=== PATIENT | female | born 1960 | race Caucasian/White ===

== ENCOUNTER → 2017-07-18 | Outpatient (CLI) | payer BC ==
[~2017-07-18] MED LIST: AMB10 PO; ATV5 PO; FLUO40CA8 PO; HYDR-3983 PO; METO50TA16 PO; NAPR-1169 PO; SIMV20TA2 PO
[2017-07-18 10:54] LABS: ALBUMIN 3.3 gm/dl (3.4-5.0); ALT/SGPT 55 U/L (12-78); AST/SGOT 33 U/L (15-37); BLOOD UREA NITROGEN 15 mg/dl (7-18); CALCIUM 9.1 mg/dl (8.5-10.1); CARBON DIOXIDE 26 mmol/L (21-32); CREATININE 0.77 mg/dl (0.60-1.20); GLUCOSE 114 mg/dl (70-99); POTASSIUM 4.2 mmol/L (3.5-5.1); SODIUM 135 mmol/L (136-145)
[2017-07-18 10:57] LABS: ALKALINE PHOSPHATASE 187 U/L (45-117); CHOLESTEROL 210 mg/dl (0-200); LDL CHOLESTEROL CALCULATED 124 mg/dl; TOTAL PROTEIN 7.8 gm/dl (6.4-8.2)
== END | disposition home or self-care (01) ==
LOC: C.LAB 09:29
PROVIDERS: ATTEND Nurse Practitioner Adult Health
DX: Z11.59 Encounter for screening for other viral diseases (principal); R53.83 Other fatigue; E78.5 Hyperlipidemia, unspecified; I10 Essential (primary) hypertension

== ENCOUNTER → 2017-08-07 | Outpatient (CLI) | payer BC | END | disposition home or self-care (01) | LOC: C.LAB 08:27 | PROVIDERS: ATTEND Nurse Practitioner Adult Health | DX: R73.01 Impaired fasting glucose (principal) ==

== ENCOUNTER 2018-07-12 19:04 | Observation (INO) ==
[2018-07-12] MEDS ORDERED: FAMOTIDINE 20 MG TAB PO ONE (20:04)
[2018-07-12] MEDS ORDERED: GI COCKTAIL ED USE PO ONE (20:04)
[2018-07-12] MEDS ORDERED: SUCRALFATE 1 GM TAB PO STA (20:04)
[2018-07-12 20:42] LABS: Basophils # (auto) 0.05 K/uL (0-0.2); Basophils % (auto) 0.5 %; Eosinophils # (auto) 0.18 K/uL (0-0.5); Eosinophils % (auto) 1.7 %; Hematocrit (blood only) 42.5 % (37-47); Immature Granulocytes # (auto) 0.03 K/uL (0.00-0.02); Immature Granulocytes % (auto) 0.3 %; Lymphocytes # (auto) 2.61 K/uL (1.2-3.4); Lymphocytes % (auto) 24.8 %; Mean Corpuscular Hgb Conc 35.3 g/dL (32-36); Mean Corpuscular Volume 91.2 fL (80-100); Mean Platelet Volume 9.2 fL (7.4-10.4); Monocytes # (auto) 0.87 K/uL (0.11-0.59); Monocytes % (auto) 8.3 %; Neutrophils # (auto) 6.79 K/uL (1.4-6.5); Neutrophils % (auto) 64.4 %; Platelet Count 260 K/uL (130-400); RDW Coefficient of Variation 13.3 % (11.5-14.5); RDW Standard Deviation 44.2 fL (36.4-46.3); Red Blood Count 4.66 M/uL (4.2-5.4); White Blood Count 10.53 K/uL (4.8-10.8)
[2018-07-12 20:58] LABS: iSTAT Creatinine 0.9 mg/dl (0.6-1.3); iSTAT Ionized Calcium 1.13 mmol/l (1.12-1.32); iSTAT Potassium 3.9 mEq/L (3.3-5.0)
[2018-07-12 20:58] LABS: Alanine Aminotransferase 48 U/L (12-78); Albumin Level 3.2 gm/dl (3.4-5.0); Aspartate Aminotransferase 30 U/L (15-37); BUN Creatinine Ratio 16.1 (10-20); Blood Urea Nitrogen 16 mg/dl (7-18); Calcium 8.9 mg/dl (8.5-10.1); Carbon Dioxide 27 mmol/L (21-32); Chloride 103 mmol/L (98-107); Creatinine Clr Calc Pharmacy 75.6 ml/min; Est GFR (African American) 72.8; Est GFR (Non-African American) 62.8; Glucose 101 mg/dl (70-99); Potassium 3.8 mmol/L (3.5-5.1); Sodium 136 mmol/L (136-145)
[2018-07-12 21:03] LABS: Albumin Globulin Ratio 0.7 (0.9-2); Alkaline Phosphatase 240 U/L (45-117); Bilirubin,Total 0.4 mg/dl (0.2-1); Creatine Kinase 38 U/L (26-192); Creatine Kinase MB < 1.0 ng/ml (0.5-3.6); Globulin 4.4 gm/dl (2.5-4.0); Total Protein 7.6 gm/dl (6.4-8.2); Troponin I < 0.015 ng/ml (0-0.045)
--- NOTE | 2018-07-12 21:51 | XRay Report ---
XR chest 1V not portable HISTORY: Atypical Chest Pain COMPARISON: None. FINDINGS: The lungs are clear. The cardiac silhouette is mildly enlarged. No pleural effusions. No pn eumothorax. No evidence for pulmonary edema. Right peritracheal prominence is likely due to to medias tinal fat. IMPRESSION: Mild cardiomegaly. Electronically signed by: Remy Cabrales M.D. 07/12/2018 9:50 PM
--- NOTE | 2018-07-12 21:52 | XRay Report ---
THORACIC SPINE 3 VIEWS HISTORY: Pt c/o back pain COMPARISON: None. FINDINGS: There is no fracture. No subluxation. Prior cholecystectomy. Small endplate osteophytes an d mild disc space narrowing throughout the majority of the thoracic spine. This remains unchanged. IMPRESSION: No fracture or subluxation within the thoracic spine. Mild degenerative changes are again noted. Electronically signed by: Remy Cabrales M.D. 07/12/2018 9:51 PM
[2018-07-12] MEDS ORDERED: ALBUTEROL 0.083% NEBU SOLN 3 ML VIAL NEB STA (22:31)
[2018-07-12] MEDS ORDERED: ASPIRIN CHEW 324 MG PO STA (23:06)
[2018-07-12] MEDS ORDERED: NITROGLYCERIN SL 0.4 MG/TAB TAB SL STA (23:06)
[2018-07-12] MEDS ORDERED: MoRPHine SULFATE 10 MG/ML CARP/VIAL IV STA (23:34)
[2018-07-12] MEDS ORDERED: ONDANSETRON INJ 2 MG/ML 2 ML VIAL IV STA (23:34)
[2018-07-13] MEDS ORDERED: OPTIRAY 320 125ml IV PRN (00:10)
--- NOTE | 2018-07-13 01:02 | History & Physical Report ---
Date of Service July 13, 2018 Assessment & Plan (1) Chest pain: Seems to be more musculoskeletal in nature rather than cardiac. However, patient with risk factors to include age, HTN, HLP, active smoker, was borderline DM in the past as well. -Telemetry monitoring -Trend troponin -Check lipids -Check A1C -Check 2D echocardiogram (2) Back pain: Appears to be musculoskeletal in nature. Tenderness with palpation. Muscles are warm and boggy. Neurologically intact. Neck is supple. No recent trauma. X-ray T-spine with chronic degenerative changes -Tylenol -Heating pad -Lidoderm patch -Will avoid NSAIDs for now while ruling out ACS (3) Hypertension: Blood pressure well controlled at present. Equal in both arms (125/88 in LUE, 121/79 in RUE) -Continue Metoprolol (4) Hyperlipidemia: Patient states she is to be taking a statin but has not had the prescription filled as of yet -Check lipids -Will initiate statin prior to DC EtOH use - patient states that she used to drink approximately a six pack/day. She recently cut back over the last two weeks and now drinks a 6 pack daily on weekends only. No history of seizures, withdrawal. Last drink was Monday -CIWA protocol PRN Post nasal drip - Start nasal saline and flonase for symptomatic relief F/E/N- Heplock, monitor electrolytes and replete as needed, heart healthy diet as tolerated Ppx - Lovenox for DVT prophylaxis. Start Pepcid daily for increase in reflux symptoms Code - DNR per discussion with patient Dispo - Observation to medical floor History of Present Illness Chief Complaint: Back pain, chest heaviness Primary Care Provider: MERRILL Myers Patient is a 58yo female with history of HTN, HLP, Borderline DM, active smoker presenting with tightness in her chest and thoracic back pain that started last night. Her back pain is 8/10 in severity, midline in upper portion of back with radiation to shoulders. She denies trauma. No new activities or strain. No relieving or exacerbating factors identified. Patient also reports substernal chest tightness. Non-radiating. Non- exertional. No palpitations, SOB, diaphoresis. She has been feeling unwell for the last two weeks - weakness, fatigue, malaise , nausea as well as occasional dizziness. Also reporting constant post-nasal drip and a recent increase in her reflux symptoms. ER Course: Zofran 4mg IV, Morphine 8mg, ASA 324mg, Nitro 0.4mg, Albuterol neb, GI cocktail, Sucralfate, Pepcid Allergies Allergy/AdvReac Type Severity Reaction Status Date / Time No Known Allergies Allergy Verified 07/12/18 22:08 Home Medications Home Medications Medication Instructions Recorded Confirmed Type fluoxetine 40 mg PO DAILY 07/12/18 07/12/18 History lorazepam 0.5 mg PO BID PRN 07/12/18 07/12/18 History metoprolol tartrate 50 mg PO DAILY 07/12/18 07/12/18 History Past Med/Surg History Medical History Heart burn Hx of hysterectomy Hyperlipidemia Hypertension Surgical History Hx of cholecystectomy Family History Other Cancer Diabetes Hypertension Lung disease Social History Feels Safe at Home: Yes Smoking Status: Current every day smoker Hx Alcohol Use: Yes (beer - 6pack/day on weekends) Hx Substance Use: No Review of Systems All systems reviewed & are unremarkable except as noted in HPI & below Weakness, fatigue, malaise Thoracic back pain SSCP Dizziness PND GERD Physical Exam 2 Vital Signs (Past 24 Hours): Last Vital Signs Temp 36.9 C 07/12/18 19:19 Pulse 98 H 07/13/18 00:10 Resp 18 07/13/18 00:10 BP 121/78 07/13/18 00:10 Pulse Ox 98 07/13/18 00:10 Physical Exam: General: patient resting comfortably, NAD, non-toxic in appearance, AA&O x 4, mildly tremulous Skin: warm, dry, intact, no rashes or lesions HEENT: NC/AT, right pupil minimally reactive to light, blindness right eye, left pupil briskly reactive, EOMI, anicteric sclera, conjunctiva without injection, external ear normal to inspection and nontender, nares patent, moist mucus membranes, dentition intact, no oropharyngeal lesions, mild erythemal of posterior pharynx, neck supple, trachea midline, no LAD, no thyromegaly, no JVD Heart: +S1/S2, regular, no m/r/g, +CW pain Lungs: equal air entry bilaterally, no rales/rhonchi/wheezes Abd: +BS, soft, NT/ND, no masses/organomegaly/ascites Ext: warm, 2+ pulses in UE/LE bilaterally, no clubbing/cyanosis or edema, + thoracic back pain, muscle tenderness, warmth/bogginess Neuro: nonfocal, patient AA&O x 4, speech intact, no facial droop, moving all extremities on command with equal strength 5/5 Results & Data Laboratory Results Lab Results 07/12/18 07/12/18 07/12/18 Range/Units 20:23 20:30 20:30 WBC 10.53 (4.8-10.8) K/uL RBC 4.66 (4.2-5.4) M/uL Hgb 15.0 (12.0-16.0) g/dL POC Hgb (12.0-16.0) g/dl Hct 42.5 (37-47) % POC Hct (37-47) % MCV 91.2 (80-100) fL MCH 32.2 (25-34) pg MCHC 35.3 (32-36) g/dL RDW Std Deviation 44.2 (36.4-46.3) fL RDW Coeff of [place] 13.3 (11.5-14.5) % Plt Count 260 (130-400) K/uL MPV 9.2 (7.4-10.4) fL Immature Gran % (Auto) 0.3 % Neut % (Auto) 64.4 % Lymph % (Auto) 24.8 % [place] % (Auto) 8.3 % Eos % (Auto) 1.7 % Baso % (Auto) 0.5 % Immature Gran # (Auto) 0.03 H (0.00-0.02) K/uL Neut # (Auto) 6.79 H (1.4-6.5) K/uL Lymph # (Auto) 2.61 (1.2-3.4) K/uL [place] # (Auto) 0.87 H (0.11-0.59) K/uL Eos # (Auto) 0.18 (0-0.5) K/uL Baso # (Auto) 0.05 (0-0.2) K/uL POC D-Dimer (0-450) ng/mlFEU POC Sodium (135-144) mEq/L Sodium 136 (136-145) mmol/L POC Potassium (3.3-5.0) mEq/L Potassium 3.8 (3.5-5.1) mmol/L POC Chloride (101-112) mEq/L Chloride 103 (98-107) mmol/L Carbon Dioxide 27 (21-32) mmol/L POC Total CO2 (24-31) mEq/l Anion Gap 6.0 (3-11) POC Anion Gap (16-25) mmol/L POC BUN (7-18) mg/dl BUN 16 (7-18) mg/dl Creatinine 0.99 (0.6-1.2) mg/dl POC Creatinine (0.6-1.3) mg/dl Est Cr Clr Drug Dosing 75.6 ml/min Est GFR ( Amer) 72.8 Est GFR (Non-Af Amer) 62.8 BUN/Creatinine Ratio 16.1 (10-20) Glucose 101 H (70-99) mg/dl POC Glucose (70-99) POC Glucose (other) (70-99) mg/dl Calcium 8.9 (8.5-10.1) mg/dl POC Ioniz Calcium [place] (1.12-1.32) mmol/l Total Bilirubin 0.4 (0.2-1) mg/dl AST 30 (15-37) U/L ALT 48 (12-78) U/L Alkaline Phosphatase 240 H (45-117) U/L Total Creatine Kinase 38 (26-192) U/L CK-MB (CK-2) < 1.0 (0.5-3.6) ng/ml CK/CKMB % Calc TNP Troponin I < 0.015 (0-0.045) ng/ml Total Protein 7.6 (6.4-8.2) gm/dl Albumin 3.2 L (3.4-5.0) gm/dl Globulin 4.4 H (2.5-4.0) gm/dl Albumin/Globulin Ratio 0.7 L (0.9-2) Lipase 137 (73-393) U/L Monoscreen (Negative) Influenza Type A Ag Neg for Influ A (Neg) Influenza Type B Ag Neg for Influ B (Neg) 07/12/18 07/12/18 07/12/18 Range/Units 20:30 20:39 20:44 WBC (4.8-10.8) K/uL RBC (4.2-5.4) M/uL Hgb (12.0-16.0) g/dL POC Hgb 15.0 (12.0-16.0) g/dl Hct (37-47) % POC Hct 44 (37-47) % MCV (80-100) fL MCH (25-34) pg MCHC (32-36) g/dL RDW Std Deviation (36.4-46.3) fL RDW Coeff of [place] (11.5-14.5) % Plt Count (130-400) K/uL MPV (7.4-10.4) fL Immature Gran % (Auto) % Neut % (Auto) % Lymph % (Auto) % [place] % (Auto) % Eos % (Auto) % Baso % (Auto) % Immature Gran # (Auto) (0.00-0.02) K/uL Neut # (Auto) (1.4-6.5) K/uL Lymph # (Auto) (1.2-3.4) K/uL [place] # (Auto) (0.11-0.59) K/uL Eos # (Auto) (0-0.5) K/uL Baso # (Auto) (0-0.2) K/uL POC D-Dimer 434 (0-450) ng/mlFEU POC Sodium 138 (135-144) mEq/L Sodium (136-145) mmol/L POC Potassium 3.9 (3.3-5.0) mEq/L Potassium (3.5-5.1) mmol/L POC Chloride 101 (101-112) mEq/L Chloride (98-107) mmol/L Carbon Dioxide (21-32) mmol/L POC Total CO2 25 (24-31) mEq/l Anion Gap (3-11) POC Anion Gap 17.0 (16-25) mmol/L POC BUN 15 (7-18) mg/dl BUN (7-18) mg/dl Creatinine (0.6-1.2) mg/dl POC Creatinine 0.9 (0.6-1.3) mg/dl Est Cr Clr Drug Dosing ml/min Est GFR ( Amer) Est GFR (Non-Af Amer) BUN/Creatinine Ratio (10-20) Glucose (70-99) mg/dl POC Glucose (70-99) POC Glucose (other) 101 H (70-99) mg/dl Calcium (8.5-10.1) mg/dl POC Ioniz Calcium [place] 1.13 (1.12-1.32) mmol/l Total Bilirubin (0.2-1) mg/dl AST (15-37) U/L ALT (12-78) U/L Alkaline Phosphatase (45-117) U/L Total Creatine Kinase (26-192) U/L CK-MB (CK-2) (0.5-3.6) ng/ml CK/CKMB % Calc Troponin I (0-0.045) ng/ml Total Protein (6.4-8.2) gm/dl Albumin (3.4-5.0) gm/dl Globulin (2.5-4.0) gm/dl Albumin/Globulin Ratio (0.9-2) Lipase (73-393) U/L Monoscreen Negative (Negative) Influenza Type A Ag (Neg) Influenza Type B Ag (Neg) 07/13/18 Range/Units 00:19 WBC (4.8-10.8) K/uL RBC (4.2-5.4) M/uL Hgb (12.0-16.0) g/dL POC Hgb (12.0-16.0) g/dl Hct (37-47) % POC Hct (37-47) % MCV (80-100) fL MCH (25-34) pg MCHC (32-36) g/dL RDW Std Deviation (36.4-46.3) fL RDW Coeff of [place] (11.5-14.5) % Plt Count (130-400) K/uL MPV (7.4-10.4) fL Immature Gran % (Auto) % Neut % (Auto) % Lymph % (Auto) % [place] % (Auto) % Eos % (Auto) % Baso % (Auto) % Immature Gran # (Auto) (0.00-0.02) K/uL Neut # (Auto) (1.4-6.5) K/uL Lymph # (Auto) (1.2-3.4) K/uL [place] # (Auto) (0.11-0.59) K/uL Eos # (Auto) (0-0.5) K/uL Baso # (Auto) (0-0.2) K/uL POC D-Dimer (0-450) ng/mlFEU POC Sodium (135-144) mEq/L Sodium (136-145) mmol/L POC Potassium (3.3-5.0) mEq/L Potassium (3.5-5.1) mmol/L POC Chloride (101-112) mEq/L Chloride (98-107) mmol/L Carbon Dioxide (21-32) mmol/L POC Total CO2 (24-31) mEq/l Anion Gap (3-11) POC Anion Gap (16-25) mmol/L POC BUN (7-18) mg/dl BUN (7-18) mg/dl Creatinine (0.6-1.2) mg/dl POC Creatinine (0.6-1.3) mg/dl Est Cr Clr Drug Dosing ml/min Est GFR ( Amer) Est GFR (Non-Af Amer) BUN/Creatinine Ratio (10-20) Glucose (70-99) mg/dl POC Glucose 119 H (70-99) POC Glucose (other) (70-99) mg/dl Calcium (8.5-10.1) mg/dl POC Ioniz Calcium [place] (1.12-1.32) mmol/l Total Bilirubin (0.2-1) mg/dl AST (15-37) U/L ALT (12-78) U/L Alkaline Phosphatase (45-117) U/L Total Creatine Kinase (26-192) U/L CK-MB (CK-2) (0.5-3.6) ng/ml CK/CKMB % Calc Troponin I (0-0.045) ng/ml Total Protein (6.4-8.2) gm/dl Albumin (3.4-5.0) gm/dl Globulin (2.5-4.0) gm/dl Albumin/Globulin Ratio (0.9-2) Lipase (73-393) U/L Monoscreen (Negative) Influenza Type A Ag (Neg) Influenza Type B Ag (Neg) Diagnostic Findings THORACIC SPINE 3 VIEWS HISTORY: Pt c/o back pain COMPARISON: None. FINDINGS: There is no fracture. No subluxation. Prior cholecystectomy. Small endplate osteophytes and mild disc space narrowing throughout the majority of the thoracic spine. This remains unchanged. IMPRESSION: No fracture or subluxation within the thoracic spine. Mild degenerative changes are again noted. Electronically signed by: Remy Cabrales M.D. 07/12/2018 9:51 PM Dictated: [id number] Transcribed: 07/12/182149 XR chest 1V not portable HISTORY: Atypical Chest Pain COMPARISON: None. FINDINGS: The lungs are clear. The cardiac silhouette is mildly enlarged. No pleural effusions. No pneumothorax. No evidence for pulmonary edema. Right peritracheal prominence is likely due to to mediastinal fat. IMPRESSION: Mild cardiomegaly. Electronically signed by: Remy Cabrales M.D. 07/12/2018 9:50 PM Dictated: [id number] Transcribed: 07/12/182147 ECG Additional Comments: NSR at 87bpm, left axis, XH=815. QRS=86, LOz=193, no evidence of acute ischemia Code Status & VTE Plan Code Status DNR per discussion with patient VTE Prophylaxis Plan VTE Prophylaxis will be ordered: Yes Critical Care Time Critical Care Time: No _ (1) Chest pain Chest pain type: precordial pain Ischemic chest pain type: Qualified Code(s ): R07.2 - Precordial pain (2) Back pain Back pain location: thoracic back pain Chronicity: acute Back pain laterality: bilateral Qualified Code(s): M54.6 - Pain in thoracic spine (3) Hypertension Hypertension type: essential hypertension Qualified Code(s): I10 - Essential (primary) hypertension (4) Hyperlipidemia Hyperlipidemia type: unspecified Qualified Code(s): E78.5 - Hyperlipidemia, unspecified
[2018-07-13] MEDS ORDERED: ACETAMINOPHEN 325 MG TAB PO PRN (01:25)
[2018-07-13] MEDS ORDERED: ONDANSETRON INJ 2 MG/ML 2 ML VIAL IV PRN (01:25)
[2018-07-13] MEDS ORDERED: SODIUM CHLORIDE 0.65% NA SOLN 45 ML (OCEAN) PRN (01:25)
[2018-07-13] MEDS ORDERED: LORazepam 1 MG/2 ML VIAL IV PRN (01:25)
[2018-07-13] MEDS ORDERED: LORazepam 0.5 MG TAB PO PRN (01:25)
[2018-07-13 01:44] LABS: Magnesium 2.1 mg/dl (1.8-2.4); NT Pro B Type Natriuretic Pept 124 pg/ml (0-900); Phosphorus 4.3 mg/dl (2.5-4.9)
--- NOTE | 2018-07-13 02:20 | Emergency Department Note ---
Entered by Jeffry Kaplan acting as a scribe for Jose Sosa MD History of Present Illness General Chief complaint: Back Injury/Pain Stated complaint: UPPER BACK PAIN, DIZZINESS, FATIGUE Time Seen by Provider: 07/12/18 19:56 Source: patient History of Present Illness Provider complaint: Back pain Onset (ago): day(s) 1 Location: back Radiation: non-radiation Pain Consistency: + intermittent Maximum Pain Intensity: 5 Quality: + burning Relieved By: + none Exacerbated By: + other (Deep breaths) Associated symptoms: + chest pain, + nausea/vomiting (No vomiting) and + other ( Fatigued) The patient is a 58 year old female who presents to the Emergency Room with complaints of intermittent back pain that started last night. Taking deep breaths makes the back pain worse and nothing seems to make it better. She states she has also been more fatigued than usual and nauseated. She first started not feeling well about 2 weeks ago with flu like symptoms. She denies any recent heavy lifting or any abnormal activities. She also has a little heart burn she describes as a burning pain and has a history of hypertension and blood clots in her eye. She is a smoker and does have a family history of hypertension, diabetes, and lung disease. Home Medications Home Medications Medication Instructions Recorded Confirmed Type fluoxetine 40 mg PO DAILY 07/12/18 07/12/18 History lorazepam 0.5 mg PO BID PRN 07/12/18 07/12/18 History metoprolol tartrate 50 mg PO DAILY 07/12/18 07/12/18 History Allergies Allergy/AdvReac Type Severity Reaction Status Date / Time No Known Allergies Allergy Verified 07/12/18 22:08 Past Med/Surg History Medical History Heart burn Hx of hysterectomy Hyperlipidemia Hypertension Surgical History Hx of cholecystectomy Family History Other Cancer Diabetes Hypertension Lung disease Social History Current Living Situation: Spouse Other Information That Helps Us Care for You: No Feels Safe at Home: Yes Safety Concerns: Feels Safe At This Time Smoking Status: Current every day smoker Tobacco Type: cigarettes Do You Dip or Chew Tobacco: No Tobacco Cessation Education Requested by Patient: No Hx Alcohol Use: Yes Alcohol type: beer Alcohol Intake Frequency: 3 or more drinks per day Hx Substance Use: No Beliefs That Will Affect Care: None Preferred Language: Vietnamese Communication Ability: Effective Air Traffic Coordinator Required: No Review of Systems See HPI for pertinent positives & negatives. and A total of 10 systems reviewed and were otherwise negative Physical Exam Vital Signs Vital Signs - 24 hr 07/12/18 19:19 07/12/18 21:10 07/12/18 22:13 Temperature 36.9 C Temperature Source Oral Sepsis Recent Fever Within 48 Hours No Sepsis New/Unexplained Change in Mental Status No Sepsis Action Taken by Nursing No Action Required Pulse Rate 96 H 81 Pulse Rate [Right Finger] 81 Pulse Rhythm Regular Regular Pulse Rhythm [Right Finger] Regular Pulse Strength Normal Pulse Strength [Right Finger] Normal Respiratory Rate 19 16 16 Respiratory Effort / Characteristics Non-Labored Spontaneous Non-Labored Respiratory Depth Normal Normal Respiratory Pattern Regular Regular Blood Pressure 175/96 H Blood Pressure [Right Arm] 127/67 Blood Pressure Mean 122 Blood Pressure Mean [Right Arm] 87 Blood Pressure Position Sitting Blood Pressure Position [Right Arm] Lying Pulse Oximetry 96 95 95 Oxygen Delivery Method Room Air Room Air Room Air 07/12/18 23:00 07/12/18 23:32 07/13/18 00:10 Temperature Temperature Source Sepsis Recent Fever Within 48 Hours Sepsis New/Unexplained Change in Mental Status Sepsis Action Taken by Nursing Pulse Rate Pulse Rate [Right Finger] 93 H 106 H 98 H Pulse Rhythm Pulse Rhythm [Right Finger] Regular Regular Regular Pulse Strength Pulse Strength [Right Finger] Normal Normal Normal Respiratory Rate 16 18 18 Respiratory Effort / Characteristics Non-Labored Non-Labored Non-Labored Respiratory Depth Normal Normal Normal Respiratory Pattern Regular Regular Blood Pressure Blood Pressure [Right Arm] 172/103 H 150/132 H 121/78 Blood Pressure Mean Blood Pressure Mean [Right Arm] 126 138 92 Blood Pressure Position Blood Pressure Position [Right Arm] Lying Lying Pulse Oximetry 94 94 98 Oxygen Delivery Method Room Air Room Air Room Air 07/13/18 00:50 07/13/18 01:32 Temperature 36.9 C Temperature Source Oral Sepsis Recent Fever Within 48 Hours Sepsis New/Unexplained Change in Mental Status Sepsis Action Taken by Nursing Pulse Rate 89 Pulse Rate [Right Finger] 94 H Pulse Rhythm Pulse Rhythm [Right Finger] Regular Pulse Strength Pulse Strength [Right Finger] Normal Respiratory Rate 16 18 Respiratory Effort / Characteristics Non-Labored Spontaneous Respiratory Depth Normal Respiratory Pattern Regular Blood Pressure 122/78 Blood Pressure [Right Arm] 126/78 Blood Pressure Mean Blood Pressure Mean [Right Arm] 94 Blood Pressure Position Blood Pressure Position [Right Arm] Lying Pulse Oximetry 98 93 Oxygen Delivery Method Room Air Room Air GENERAL: Awake, alert, well-appearing, in no distress HENT: Normocephalic, atraumatic. Oropharynx unremarkable. EYES: Normal conjunctiva. Sclera non-icteric. NECK: Supple. No nuchal rigidity. FROM. No masses. RESPIRATORY: Clear to auscultation. No wheezes. No rales. Normal respiratory effort. CARDIAC: Normal rate. Normal rhythm. No murmurs. No rubs. Extremities warm and well perfused. Pulses equal. No JVD. GI: Soft, non-distended. No tenderness to palpation. No rebound or guarding. No masses. RECTAL: Deferred. MUSCULOSKELETAL: Atraumatic. Chest examination reveals no tenderness. The back is symmetrical on inspection without obvious abnormality. She is tedner to the right T3 area. There is no CVA tenderness to palpation. No joint edema. LOWER EXTREMITIES: Calves are equal size bilaterally and non-tender. No edema. No discoloration. NEURO: Normal sensorium. No sensory or motor deficits noted. Course 1958: Past medical records reviewed. The patient was evaluated in room B10, and a complete history and physical examination were performed. 2310: I reevaluated the patient and she is still experiencing pain so I am ordering her Nitro and Aspirin. 2345: I spoke to Dr. Raymon Ledezma [facility] Hospitalist about the patient's case and she is going to accept the patient for further evaluation. Consultations Consultation #1: I spoke to Dr. Raymon Ledezma [facility] Hospitalist about the patient's case and she is going to accept the patient for further evaluation. Time: 23:45 Administered Medications Discontinued Medications Al Hydrox/Mg Hydrox/Simethicone () 1 dose PO ONE ONE Stop: 07/12/18 20:05 Last Admin: 07/12/18 20:26 Dose: 1 dose Albuterol (Ventolin 0.083% 2.5mg/3ml) 2.5 mg NEB NOW STA Stop: 07/12/18 22:32 Last Admin: 07/12/18 22:36 Dose: 2.5 mg Aspirin (Aspirin) 324 mg PO NOW STA Stop: 07/12/18 23:07 Last Admin: 07/12/18 23:37 Dose: 324 mg Famotidine (Pepcid) 20 mg PO NOW ONE Stop: 07/12/18 20:05 Last Admin: 07/12/18 20:25 Dose: 20 mg Morphine Sulfate (Morphine Sulfate) 8 mg IV NOW STA Stop: 07/12/18 23:35 Last Admin: 07/13/18 00:04 Dose: 8 mg Nitroglycerin (Nitrostat) 0.4 mg SL NOW STA Stop: 07/12/18 23:07 Last Admin: 07/12/18 23:37 Dose: 0.4 mg Ondansetron HCl (Zofran) 4 mg IV NOW STA Stop: 07/12/18 23:35 Last Admin: 07/13/18 00:04 Dose: 4 mg Sucralfate (Carafate Tab) 1 gm PO NOW STA Stop: 07/12/18 20:05 Last Admin: 07/12/18 20:25 Dose: 1 gm Medical Decision Making Differential Diagnosis Differential diagnoses includes but is not limited to lumbar radiculopathy, muscle strain, facture, cauda equina, mass, and disc herniation. Medical Records Attestation: I reviewed the patient's medical records. Home Medications Current Medication List: was personally reviewed by me Laboratory Data Attestation: I reviewed the patient's lab results. Result diagrams: 07/12/18 20:30 07/12/18 20:30 Lab Results 07/12/18 07/12/18 07/12/18 Range/Units 20:23 20:30 20:30 WBC 10.53 (4.8-10.8) K/uL RBC 4.66 (4.2-5.4) M/uL Hgb 15.0 (12.0-16.0) g/dL POC Hgb (12.0-16.0) g/dl Hct 42.5 (37-47) % POC Hct (37-47) % MCV 91.2 (80-100) fL MCH 32.2 (25-34) pg MCHC 35.3 (32-36) g/dL RDW Std Deviation 44.2 (36.4-46.3) fL RDW Coeff of Everett 13.3 (11.5-14.5) % Plt Count 260 (130-400) K/uL MPV 9.2 (7.4-10.4) fL Immature Gran % (Auto) 0.3 % Neut % (Auto) 64.4 % Lymph % (Auto) 24.8 % Starr % (Auto) 8.3 % Eos % (Auto) 1.7 % Baso % (Auto) 0.5 % Immature Gran # (Auto) 0.03 H (0.00-0.02) K/uL Neut # (Auto) 6.79 H (1.4-6.5) K/uL Lymph # (Auto) 2.61 (1.2-3.4) K/uL Starr # (Auto) 0.87 H (0.11-0.59) K/uL Eos # (Auto) 0.18 (0-0.5) K/uL Baso # (Auto) 0.05 (0-0.2) K/uL PT (9.0-12.0) Seconds INR (0.9-1.1) POC D-Dimer (0-450) ng/mlFEU POC Sodium (135-144) mEq/L Sodium 136 (136-145) mmol/L POC Potassium (3.3-5.0) mEq/L Potassium 3.8 (3.5-5.1) mmol/L POC Chloride (101-112) mEq/L Chloride 103 (98-107) mmol/L Carbon Dioxide 27 (21-32) mmol/L POC Total CO2 (24-31) mEq/l Anion Gap 6.0 (3-11) POC Anion Gap (16-25) mmol/L POC BUN (7-18) mg/dl BUN 16 (7-18) mg/dl Creatinine 0.99 (0.6-1.2) mg/dl POC Creatinine (0.6-1.3) mg/dl Est Cr Clr Drug Dosing 75.6 ml/min Est GFR ( Amer) 72.8 Est GFR (Non-Af Amer) 62.8 BUN/Creatinine Ratio 16.1 (10-20) Glucose 101 H (70-99) mg/dl POC Glucose (70-99) POC Glucose (other) (70-99) mg/dl Calcium 8.9 (8.5-10.1) mg/dl POC Ioniz Calcium Narcisa (1.12-1.32) mmol/l Phosphorus 4.3 (2.5-4.9) mg/dl Magnesium 2.1 (1.8-2.4) mg/dl Total Bilirubin 0.4 (0.2-1) mg/dl AST 30 (15-37) U/L ALT 48 (12-78) U/L Alkaline Phosphatase 240 H (45-117) U/L Total Creatine Kinase 38 (26-192) U/L CK-MB (CK-2) < 1.0 (0.5-3.6) ng/ml CK/CKMB % Calc TNP Troponin I < 0.015 (0-0.045) ng/ml NT-Pro-B Natriuret Pep 124 (0-900) pg/ml Total Protein 7.6 (6.4-8.2) gm/dl Albumin 3.2 L (3.4-5.0) gm/dl Globulin 4.4 H (2.5-4.0) gm/dl Albumin/Globulin Ratio 0.7 L (0.9-2) Lipase 137 (73-393) U/L Monoscreen (Negative) Influenza Type A Ag Neg for Influ A (Neg) Influenza Type B Ag Neg for Influ B (Neg) 07/12/18 07/12/18 07/12/18 Range/Units 20:30 20:30 20:39 WBC (4.8-10.8) K/uL RBC (4.2-5.4) M/uL Hgb (12.0-16.0) g/dL POC Hgb (12.0-16.0) g/dl Hct (37-47) % POC Hct (37-47) % MCV (80-100) fL MCH (25-34) pg MCHC (32-36) g/dL RDW Std Deviation (36.4-46.3) fL RDW Coeff of Everett (11.5-14.5) % Plt Count (130-400) K/uL MPV (7.4-10.4) fL Immature Gran % (Auto) % Neut % (Auto) % Lymph % (Auto) % Starr % (Auto) % Eos % (Auto) % Baso % (Auto) % Immature Gran # (Auto) (0.00-0.02) K/uL Neut # (Auto) (1.4-6.5) K/uL Lymph # (Auto) (1.2-3.4) K/uL Starr # (Auto) (0.11-0.59) K/uL Eos # (Auto) (0-0.5) K/uL Baso # (Auto) (0-0.2) K/uL PT 10.0 (9.0-12.0) Seconds INR 1.0 (0.9-1.1) POC D-Dimer 434 (0-450) ng/mlFEU POC Sodium (135-144) mEq/L Sodium (136-145) mmol/L POC Potassium (3.3-5.0) mEq/L Potassium (3.5-5.1) mmol/L POC Chloride (101-112) mEq/L Chloride (98-107) mmol/L Carbon Dioxide (21-32) mmol/L POC Total CO2 (24-31) mEq/l Anion Gap (3-11) POC Anion Gap (16-25) mmol/L POC BUN (7-18) mg/dl BUN (7-18) mg/dl Creatinine (0.6-1.2) mg/dl POC Creatinine (0.6-1.3) mg/dl Est Cr Clr Drug Dosing ml/min Est GFR ( Amer) Est GFR (Non-Af Amer) BUN/Creatinine Ratio (10-20) Glucose (70-99) mg/dl POC Glucose (70-99) POC Glucose (other) (70-99) mg/dl Calcium (8.5-10.1) mg/dl POC Ioniz Calcium Narcisa (1.12-1.32) mmol/l Phosphorus (2.5-4.9) mg/dl Magnesium (1.8-2.4) mg/dl Total Bilirubin (0.2-1) mg/dl AST (15-37) U/L ALT (12-78) U/L Alkaline Phosphatase (45-117) U/L Total Creatine Kinase (26-192) U/L CK-MB (CK-2) (0.5-3.6) ng/ml CK/CKMB % Calc Troponin I (0-0.045) ng/ml NT-Pro-B Natriuret Pep (0-900) pg/ml Total Protein (6.4-8.2) gm/dl Albumin (3.4-5.0) gm/dl Globulin (2.5-4.0) gm/dl Albumin/Globulin Ratio (0.9-2) Lipase (73-393) U/L Monoscreen Negative (Negative) Influenza Type A Ag (Neg) Influenza Type B Ag (Neg) 07/12/18 07/13/18 Range/Units 20:44 00:19 WBC (4.8-10.8) K/uL RBC (4.2-5.4) M/uL Hgb (12.0-16.0) g/dL POC Hgb 15.0 (12.0-16.0) g/dl Hct (37-47) % POC Hct 44 (37-47) % MCV (80-100) fL MCH (25-34) pg MCHC (32-36) g/dL RDW Std Deviation (36.4-46.3) fL RDW Coeff of [place]rett (11.5-14.5) % Plt Count (130-400) K/uL MPV (7.4-10.4) fL Immature Gran % (Auto) % Neut % (Auto) % Lymph % (Auto) % Starr % (Auto) % Eos % (Auto) % Baso % (Auto) % Immature Gran # (Auto) (0.00-0.02) K/uL Neut # (Auto) (1.4-6.5) K/uL Lymph # (Auto) (1.2-3.4) K/uL Starr # (Auto) (0.11-0.59) K/uL Eos # (Auto) (0-0.5) K/uL Baso # (Auto) (0-0.2) K/uL PT (9.0-12.0) Seconds INR (0.9-1.1) POC D-Dimer (0-450) ng/mlFEU POC Sodium 138 (135-144) mEq/L Sodium (136-145) mmol/L POC Potassium 3.9 (3.3-5.0) mEq/L Potassium (3.5-5.1) mmol/L POC Chloride 101 (101-112) mEq/L Chloride (98-107) mmol/L Carbon Dioxide (21-32) mmol/L POC Total CO2 25 (24-31) mEq/l Anion Gap (3-11) POC Anion Gap 17.0 (16-25) mmol/L POC BUN 15 (7-18) mg/dl BUN (7-18) mg/dl Creatinine (0.6-1.2) mg/dl POC Creatinine 0.9 (0.6-1.3) mg/dl Est Cr Clr Drug Dosing ml/min Est GFR ( Amer) Est GFR (Non-Af Amer) BUN/Creatinine Ratio (10-20) Glucose (70-99) mg/dl POC Glucose 119 H (70-99) POC Glucose (other) 101 H (70-99) mg/dl Calcium (8.5-10.1) mg/dl POC Ioniz Calcium Narcisa 1.13 (1.12-1.32) mmol/l Phosphorus (2.5-4.9) mg/dl Magnesium (1.8-2.4) mg/dl Total Bilirubin (0.2-1) mg/dl AST (15-37) U/L ALT (12-78) U/L Alkaline Phosphatase (45-117) U/L Total Creatine Kinase (26-192) U/L CK-MB (CK-2) (0.5-3.6) ng/ml CK/CKMB % Calc Troponin I (0-0.045) ng/ml NT-Pro-B Natriuret Pep (0-900) pg/ml Total Protein (6.4-8.2) gm/dl Albumin (3.4-5.0) gm/dl Globulin (2.5-4.0) gm/dl Albumin/Globulin Ratio (0.9-2) Lipase (73-393) U/L Monoscreen (Negative) Influenza Type A Ag (Neg) Influenza Type B Ag (Neg) Imaging Data Radiologist's Impression: Radiology results as stated below per my review and the radiologist's interpretation: XR chest 1V not portable HISTORY: Atypical Chest Pain COMPARISON: None. FINDINGS: The lungs are clear. The cardiac silhouette is mildly enlarged. No pleural effusions. No pneumothorax. No evidence for pulmonary edema. Right peritracheal prominence is likely due to to mediastinal fat. IMPRESSION: Mild cardiomegaly. Electronically signed by: Remy Cabrales M.D. 07/12/2018 9:50 PM THORACIC SPINE 3 VIEWS HISTORY: Pt c/o back pain COMPARISON: None. FINDINGS: There is no fracture. No subluxation. Prior cholecystectomy. Small endplate osteophytes and mild disc space narrowing throughout the majority of the thoracic spine. This remains unchanged. IMPRESSION: No fracture or subluxation within the thoracic spine. Mild degenerative changes are again noted. Electronically signed by: Remy Cabrales M.D. 07/12/2018 9:51 PM ECG Data Attestation: I personally reviewed and interpreted this ECG as follows: Indication: back/shoulder pain Rate (beats per minute): 87 Rhythm: normal sinus Findings: no PAC, no PVC, no ST depression and no ST elevation Blood Pressure Blood Pressure Findings: Normal blood pressure Blood Pressure Disposition: further management by hospitalist [facility] Narrative This is a 58-year-old female smoker who presents emergency department complaining of heartburn as well as back pain. Patient reports she has never had heartburn before. She was given a GI cocktail Pepcid and Carafate however there was no improvement in her heartburn. At this point she was then given nitro which relieved the patient's symptoms. I am concerned that this may be cardiac related in nature. She does have a normal EKG as well as CK-MB and troponin. She was sent for a CAT scan of the chest however this does not show any acute process. I did discuss the case with the hospitalist service who agreed to admit the patient. Patient was in agreement with the treatment plan. Impression & Plan Chest pain, Back pain, Hypertension, Acid reflux Discharge Plan Visit Data *Final* Discharge Date/Time: 07/13/18 00:50 Chief Complaint: Back Injury/Pain Stated Complaint: UPPER BACK PAIN, DIZZINESS, FATIGUE ED Provider: Jose Sosa Discharge Problem: Chest pain, Back pain, Hypertension, Acid reflux Patient Disposition: Admitted As Inpatient Discharge Instructions Interventions: ED Discharge Assessment Last Done: 07/13/18 00:50 The scribe's documentation has been prepared under my direction and personally reviewed by me in its entirety. I confirm that the note above accurately reflects all work, treatment, procedures, and medical decision making performed by me.
[2018-07-13] MEDS ORDERED: TRAMADOL HCL 50 MG TABLET PO STA (03:47)
[2018-07-13] MEDS ORDERED: Nursing to Pharmacy Communication ONE (03:48)
[2018-07-13] MEDS ORDERED: LIDOCAINE 5% 1 PATCH TD SCH ×2 (04:00→09:00)
[2018-07-13] MEDS ORDERED: ENOXAPARIN INJ 40 MG/0.4 ML SYR SQ SCH (06:00)
--- NOTE | 2018-07-13 07:27 | CT Scan Report ---
CT angio chest PE protocol CT DOSE: 636.90 mGy.cm HISTORY: Chest pain. Dyspnea. PE TECHNIQUE: Multiaxial CT images of the chest were performed following the intravenous administration of contrast to evaluate the pulmonary arteries. Maximal intensity projection images were also obtaine d. A dose lowering technique was utilized adhering to the principles of ALARA. COMPARISON STUDY: None. FINDINGS: There is a normal caliber thoracic aorta with no evidence for dissection. There is no evide nce for pulmonary embolus. No pleural effusions. No pneumothorax. The liver and spleen are unremarkab le. No mediastinal or hilar lymphadenopathy. The central airways are patent. The lungs are clear. IMPRESSION: No evidence for pulmonary embolus. The lungs are clear. The above report was generated using voice recognition software. It may contain grammatical, syntax or spelling errors. Electronically signed by: Mulugeta Das M.D. 07/13/2018 7:26 AM
[2018-07-13 08:28] LABS: BUN Creatinine Ratio 20.4 (10-20); Blood Urea Nitrogen 16 mg/dl (7-18); Calcium 8.4 mg/dl (8.5-10.1); Carbon Dioxide 27 mmol/L (21-32); Chloride 100 mmol/L (98-107); Cholesterol 227 mg/dl (0-200); Creatinine Clr Calc Pharmacy 98.5 ml/min; Est GFR (African American) 100.2; Est GFR (Non-African American) 86.5; Glucose 97 mg/dl (70-99); Potassium 3.6 mmol/L (3.5-5.1); Sodium 133 mmol/L (136-145)
[2018-07-13 08:33] LABS: Chol HDL Ratio 6; HDL Cholesterol 38 mg/dl; LDL Cholesterol Calculated 150 mg/dl; Triglycerides 196 mg/dl (0-150); Troponin I < 0.015 ng/ml (0-0.045); VLDL Cholesterol 39 mg/dl
[2018-07-13 08:36] LABS: Estimated Average Glucose 123 mg/dl; Hemoglobin A1C 5.9 % (4.5-5.6)
[2018-07-13] MEDS ORDERED: PERFLUTREN LIPID MICROSPHERE (DEFINITY) IV ONE (08:50)
[2018-07-13] MEDS ORDERED: FAMOTIDINE 20 MG TAB PO SCH (09:00)
[2018-07-13] MEDS ORDERED: FLUTICASONE PROPIONATE NA SPR 16 GM BTL SCH (09:00)
[2018-07-13] MEDS ORDERED: METOPROLOL TARTRATE 50 MG TAB PO SCH (09:00)
[2018-07-13] MEDS ORDERED: ASPIRIN 81 MG ECTAB PO SCH (09:00)
[2018-07-13] MEDS ORDERED: FLUOXETINE HCL 20 MG CAP PO SCH (09:00)
--- NOTE | 2018-07-13 11:42 | Cardiology Consultation ---
Date of Consultation July 13, 2018 Assessment & Plan (1) Chest pain: Patient presented to the ED last evening with upper back discomfort since Monday. She developed some burning pain in her chest while in the ED, which has been intermittent since that time. Nitroglycerine did not improve her chest or back pain. Cardiac enzymes have been negative. ECGs show no acute ischemic changes. Echocardiogram shows hyperdynamic LV systolic function with no wall motion abnormalities. Her symptoms are rather atypical in nature and do not appear consistent with myocardial ischemia, especially given the normal work-up thus far. Would not pursue any additional cardiovascular testing/intervention at this time. Recommend aggressive cardiovascular risk factor modification with optimal control of her blood pressure, blood sugar, and cholesterol moving forward. Also recommend smoking cessation. (2) Hypertension: BP is well controlled. She is listed as taking metoprolol tartrate 50 mg BID in outpatient records. Recommend continuing the medication twice daily upon discharge. (3) Hyperlipidemia: She is listed as taking simvastatin 20 mg daily as an outpatient. Her 10 year risk of cardiovascular disease was calculated at 10.36% and lifetime risk was 50%. Moderate to high intensity statin therapy is therefore recommended. The decision to change her statin therapy can be left to her primary care doctor who normally manages her lipids. Patient discussed with Dr. Carlisle. History of Present Illness Reason for Consultation: Chest pain Requesting Physician: Dr. Waldron Attending Physician: Dr. Carlisle History of Present Illness Mrs. Barrera is a 58-year-old female with a history of hypertension, dyslipidemia, prediabetes, and tobacco abuse who was admitted in the setting of back and chest pain. The patient states that over the last 2 weeks, she has not felt well in general. She reports some tiredness, fatigue, and intermittent nausea. On Monday, she developed pain in her back in between her shoulder blades that radiates into her shoulders bilaterally. The pain is described as an ache and has been constant in nature. She went to the ED last evening for further evaluation of her symptoms, and while she was in the ED, she developed a burning pain in her chest. She has noted the burning discomfort off and on since then, and she currently notes some mild discomfort. She was given nitro in the ED which did not help with the chest discomfort or back pain. Her back/chest pain is not positional in nature, and she denies any correlation with food. She denies any shortness of breath at rest. She reports chronic dyspnea on exertion with activities such as ambulating upstairs. She feels that her breathing has been gradually worsening over the years. She denies orthopnea, PND, or edema. She denies palpitations, lightheadedness, syncope, or presyncope. She denies abnormal bleeding such as melena, hematochezia, or hematuria. She denies cerebrovascular symptoms. She denies fevers, chills, vomiting, or diarrhea. She denies cough or wheezing. Review of Systems: As noted in HPI. All other 10 point ROS are reviewed and otherwise negative at this time. Past medical history: 1. Hypertension 2. Dyslipidemia 3. Depression/anxiety 4. Vitamin D deficiency 5. Prediabetes 6. Cholecystectomy 7. Hysterectomy 8. Left knee arthroscopy Family history: No family history of premature CAD. Mother had Rheumatic fever with subsequent cardiovascular complications. Father had a [place] in his 80s. Social history: She is with 3 children and 4 grandchildren. She works for [employer]. She has smoked off and on since the age of 13 at up to 3 ppd. She currently smokes about a pack a day. She drinks about 12 alcoholic beverages per week. She denies illicit drug use. Allergies Allergy/AdvReac Type Severity Reaction Status Date / Time No Known Allergies Allergy Verified 07/12/18 22:08 Home Medications Home Medications Medication Instructions Recorded Confirmed Type fluoxetine 40 mg PO DAILY 07/12/18 07/12/18 History lorazepam 0.5 mg PO BID PRN 07/12/18 07/12/18 History acetaminophen [Mapap 650 mg PO Q4H PRN #30 tab 07/13/18 Rx (acetaminophen)] fluticasone 2 sprays NA DAILY #18.2 gm 07/13/18 Rx metoprolol tartrate 50 mg PO BID #60 tab 07/13/18 07/12/18 Rx simvastatin 40 mg PO HS #0 tab 07/13/18 07/13/18 Rx sodium chloride [Saline Mist] 2 sprays NA Q4H PRN #15 ml 07/13/18 Rx Patient History Medical History Heart burn Hx of hysterectomy Hyperlipidemia Hypertension Surgical History Hx of cholecystectomy Family History Other Cancer Diabetes Hypertension Lung disease Social History Preferred Language: Prydein[place] Beliefs That Will Affect Care: None Current Living Situation: Spouse Feels Safe at Home: Yes Smoking Status: Current every day smoker Hx Alcohol Use: Yes Hx Substance Use: No Physical Exam Vital Signs (Past 24 Hours): Last Vital Signs Temp 37.1 C 07/13/18 07:33 Pulse 88 07/13/18 09:14 Resp 20 07/13/18 07:33 BP 113/76 07/13/18 07:33 Pulse Ox 91 07/13/18 07:33 Constitutional: Alert, oriented, in no acute distress HEENT: Head is atraumatic and normocephalic. EOMs intact. Sclera anicteric. Face is symmetric. No perioral cyanosis. Mucous membranes moist. Neck: Supple, no JVD, no carotid bruits Pulmonary: Normal respiratory effort, clear to auscultation bilaterally Cardiac: Regular rate and rhythm, normal S1 and S2, no gallops, no rubs, no murmurs Extremities: No clubbing, cyanosis, or edema. Pulses 2+ and symmetric Abdomen: Obese. Normal bowel sounds, soft, non-tender, no abdominal mass pal pated Skin: Normal skin color, turgor, and pigmentation, no rash, no skin lesions Neurological: Oriented to person, place, and time Results & Data Laboratory Results Laboratory Results WBC 10.53 K/uL (4.8-10.8) 07/12/18 20:30 RBC 4.66 M/uL (4.2-5.4) 07/12/18 20:30 Hgb 15.0 g/dL (12.0-16.0) 07/12/18 20:30 POC Hgb 15.0 g/dl (12.0-16.0) 07/12/18 20:44 Hct 42.5 % (37-47) 07/12/18 20:30 POC Hct 44 % (37-47) 07/12/18 20:44 MCV 91.2 fL (80-100) 07/12/18 20:30 MCH 32.2 pg (25-34) 07/12/18 20:30 MCHC 35.3 g/dL (32-36) 07/12/18 20:30 RDW Std Deviation 44.2 fL (36.4-46.3) 07/12/18 20:30 RDW Coeff of [place] 13.3 % (11.5-14.5) 07/12/18 20:30 Plt Count 260 K/uL (130-400) 07/12/18 20:30 MPV 9.2 fL (7.4-10.4) 07/12/18 20:30 Immature Gran % (Auto) 0.3 % 07/12/18 20:30 Neut % (Auto) 64.4 % 07/12/18 20:30 Lymph % (Auto) 24.8 % 07/12/18 20:30 [place] % (Auto) 8.3 % 07/12/18 20:30 Eos % (Auto) 1.7 % 07/12/18 20:30 Baso % (Auto) 0.5 % 07/12/18 20:30 Immature Gran # (Auto) 0.03 K/uL (0.00-0.02) H 07/12/18 20:30 Neut # (Auto) 6.79 K/uL (1.4-6.5) H 07/12/18 20:30 Lymph # (Auto) 2.61 K/uL (1.2-3.4) 07/12/18 20:30 [place] # (Auto) 0.87 K/uL (0.11-0.59) H 07/12/18 20:30 Eos # (Auto) 0.18 K/uL (0-0.5) 07/12/18 20:30 Baso # (Auto) 0.05 K/uL (0-0.2) 07/12/18 20:30 PT 10.0 Seconds (9.0-12.0) 07/12/18 20:30 INR 1.0 (0.9-1.1) 07/12/18 20:30 POC D-Dimer 434 ng/mlFEU (0-450) 07/12/18 20:39 POC Sodium 138 mEq/L (135-144) 07/12/18 20:44 Sodium 133 mmol/L (136-145) L 07/13/18 07:30 POC Potassium 3.9 mEq/L (3.3-5.0) 07/12/18 20:44 Potassium 3.6 mmol/L (3.5-5.1) 07/13/18 07:30 POC Chloride 101 mEq/L (101-112) 07/12/18 20:44 Chloride 100 mmol/L (98-107) 07/13/18 07:30 Carbon Dioxide 27 mmol/L (21-32) 07/13/18 07:30 POC Total CO2 25 mEq/l (24-31) 07/12/18 20:44 Anion Gap 6.0 (3-11) 07/13/18 07:30 POC Anion Gap 17.0 mmol/L (16-25) 07/12/18 20:44 POC BUN 15 mg/dl (7-18) 07/12/18 20:44 BUN 16 mg/dl (7-18) 07/13/18 07:30 Creatinine 0.76 mg/dl (0.6-1.2) 07/13/18 07:30 POC Creatinine 0.9 mg/dl (0.6-1.3) 07/12/18 20:44 Est Cr Clr Drug Dosing 98.5 ml/min 07/13/18 07:30 Est GFR ( Amer) 100.2 07/13/18 07:30 Est GFR (Non-Af Amer) 86.5 07/13/18 07:30 BUN/Creatinine Ratio 20.4 (10-20) H 07/13/18 07:30 Glucose 97 mg/dl (70-99) 07/13/18 07:30 POC Glucose 84 (70-99) 07/13/18 11:46 POC Glucose (other) 101 mg/dl (70-99) H 07/12/18 20:44 Estimat Average Glucose 123 mg/dl 07/13/18 07:30 Hemoglobin A1c 5.9 % (4.5-5.6) H 07/13/18 07:30 Calcium 8.4 mg/dl (8.5-10.1) L 07/13/18 07:30 POC Ioniz Calcium Narcisa 1.13 mmol/l (1.12-1.32) 07/12/18 20:44 Phosphorus 4.3 mg/dl (2.5-4.9) 07/12/18 20:30 Magnesium 2.1 mg/dl (1.8-2.4) 07/12/18 20:30 Total Bilirubin 0.4 mg/dl (0.2-1) 07/12/18 20:30 AST 30 U/L (15-37) 07/12/18 20:30 ALT 48 U/L (12-78) 07/12/18 20:30 Alkaline Phosphatase 240 U/L (45-117) H 07/12/18 20:30 Total Creatine Kinase 38 U/L (26-192) 07/12/18 20:30 CK-MB (CK-2) < 1.0 ng/ml (0.5-3.6) 07/12/18 20:30 CK/CKMB % Calc TNP 07/12/18 20:30 Troponin I < 0.015 ng/ml (0-0.045) 07/13/18 07:30 NT-Pro-B Natriuret Pep 124 pg/ml (0-900) 07/12/18 20:30 Total Protein 7.6 gm/dl (6.4-8.2) 07/12/18 20:30 Albumin 3.2 gm/dl (3.4-5.0) L 07/12/18 20:30 Globulin 4.4 gm/dl (2.5-4.0) H 07/12/18 20:30 Albumin/Globulin Ratio 0.7 (0.9-2) L 07/12/18 20:30 Triglycerides 196 mg/dl (0-150) H 07/13/18 07:30 Cholesterol 227 mg/dl (0-200) H 07/13/18 07:30 LDL Cholesterol, Calc 150 mg/dl 07/13/18 07:30 VLDL Cholesterol, Calc 39 mg/dl 07/13/18 07:30 HDL Cholesterol 38 mg/dl 07/13/18 07:30 Cholesterol/HDL Ratio 6 07/13/18 07:30 Lipase 137 U/L (73-393) 07/12/18 20:30 Folate 5.70 ng/ml (>5.38) 07/13/18 07:30 Monoscreen Negative (Negative) 07/12/18 20: Influenza Type A Ag Neg for Influ A (Neg) 07/12/18 20:23 Influenza Type B Ag Neg for Influ B (Neg) 07/12/18 20:23 Diagnostic Findings ECGs reviewed and show normal sinus rhythm. No acute ST-T wave abnormality. Echo: Normal LV size with hyperdynamic systolic function. EF >70%. No regional wall motion abnormalities. Mild LVH. Type 1 diastolic dysfunction. No significant valvular abnormalities. CXR: Mild cardiomegaly. Thoracic spine x-ray: No fracture or subluxation within the thoracic spine. Mild degenerative changes are again noted. Chest CTA: No evidence of PE. Lungs are clear. (1) Hyperlipidemia Hyperlipidemia type: unspecified Qualified Code(s): E78.5 - Hyperlipidemia, unspecified (2) Chest pain Chest pain type: precordial pain Qualified Code(s): R07.2 - Precordial pain (3) Hypertension Hypertension type: unspecified Qualified Code(s): I10 - Essential (primary) h ypertension
--- NOTE | 2018-07-13 17:18 | Discharge Summary ---
Date of Service July 13, 2018 Admission HPI Per Admitting Provider Patient is a 58yo female with history of HTN, HLP, Borderline DM, active smoker presenting with tightness in her chest and thoracic back pain that started last night. Her back pain is 8/10 in severity, midline in upper portion of back with radiation to shoulders. She denies trauma. No new activities or strain. No relieving or exacerbating factors identified. Patient also reports substernal chest tightness. Non-radiating. Non- exertional. No palpitations, SOB, diaphoresis. She has been feeling unwell for the last two weeks - weakness, fatigue, malaise , nausea as well as occasional dizziness. Also reporting constant post-nasal drip and a recent increase in her reflux symptoms. ER Course: Zofran 4mg IV, Morphine 8mg, ASA 324mg, Nitro 0.4mg, Albuterol neb, GI cocktail, Sucralfate, Pepcid Principal Diagnosis Chest pain-non cardiac Neck and upper back pain-musculoskeletal Discharge Exam Constitutional WD/WN, vitals as above + morbidly obese Eyes PERRL, conjunctivae normal, anicteric sclerae ENMT external ear and nose normal, oropharynx normal Neck trachea midline, no thyromegaly Respiratory normal respiratory effort, lungs clear to auscultation Cardiovascular RRR, no murmur, no edema Gastrointestinal (Abdomen) normal bowel sounds, soft, nontender, no hepatosplenomegaly Musculoskeletal Extremities: extremities normal to inspection; no cyanosis and no clubbing Skin no rashes, warm and dry Neurologic moves all extremities and awake; no focal motor deficits Psychiatric A+Ox3, euthymic affect Discharge Data Allergies Allergy/AdvReac Type Severity Reaction Status Date / Time No Known Allergies Allergy Verified 07/12/18 22:08 Consultations 07/12/18 23:33 ED Decision to Admit Stat 07/13/18 08:49 Consult Cardiology Routine Procedures Performed ECHO: grade 1 diastolic dysfunction, LVEF 70% Ordered Studies 07/12/18 23:33 CT angio chest PE protocol Stat Hospital Course (1) Chest pain: Liekly GI related, burnig in nature. She does drink a lot of EtOH, has h/ o PUD in childhood, morbid obesity, and is a smoker-all risk factors for GERD. Neck and upper back pain is more musculoskeletal in nature rather than cardiac. No tele events Troponins serially negative ECHO without wall motion abnormalities, ECGs normal Atypical in nature, no need for stress test -encouraged EtOH and tobacco cessation, weight loss -pain improved today with giving pepcid -start Protonix 40mg po bid x 14 day course and f/u with PCP Lipids high, needs to start back on her home statin (2) Back pain: Appears to be musculoskeletal in nature. Tenderness with palpation of the neck. Neurologically intact. Neck is supple. No recent trauma. X-ray T- spine with chronic degenerative changes -Tylenol prn -Heating pad (3) Hypertension: Blood pressure well controlled at present. -Continue Metoprolol tartrate but should be 50mg bid (listed on home med list as once daily?) (4) Hyperlipidemia: LDL 150, HDL 38, TChol 228, high risk for CV event -increase simvastatin to 40mg daily -follow LFTs, lipids as outpt EtOH use - patient states that she used to drink approximately a six pack/day. She recently cut back over the last two weeks and now drinks a 6 pack daily on weekends only. No history of seizures, withdrawal. Last drink was Monday advised cessation Post nasal drip - Start nasal saline and flonase for symptomatic relief Tobacco use: strongly encouraged smoking cessation (5) Prediabetes: A1C 5.9% -encouraged weight loss, dietary changes Stable for dc to home Total Time Total Time Spent Total Time Spent (In Minutes): > 30 min Total Time Includes: Examination of the Patient, Discharge Planning and Medication Reconciliation Discharge Plan Discharge Items Patient Disposition: Home - Self-Care Reason For Visit: CHEST PAIN Discharge Diagnosis: Chest pain-indigestion Condition: Good Discharge Goals: Decrease discomfort, Diagnostic testing, Learn about illness and Therapeutic intervention Activity: Resume your previous activity Lifting: Gradually increase as tolerated Bathing: No limitations Exercise/Sports: Gradually increase as tolerated Driving/Machine Use: No limitations Non-emergency contact: Primary Care Provider Call non-emergency contact if: you have any medication questions, your symptoms worsen and your pain is not controlled Follow-up/Referrals: Ashtyn Mitchell CRNP [Primary Care Provider] - 07/19/18 3:00 pm (follow up with your primary care provider) Diet: Heart Healthy Addtl Provider Instructions: You were admitted with chest pain and upper back pain which is likely due to a muscle strain of the neck and acid indigestion. Please take tylenol as needed and use a heating pad for your neck. You should start a medication called Protonix and take it twice a day for your indigestion. I strongly recommend you QUIT SMOKING and continue to cut down on your alcohol intake until you are no longer drinking alcohol at all. Your cholesterol is very high and you should increase the dose of your simvastatin to 40mg once daily You need to work on weight loss with your primary care doctor. Prescriptions: New acetaminophen [Mapap (acetaminophen)] 325 mg Tablet 650 mg PO Q4H PRN (Reason: pain) Qty: 30 RF: 0 fluticasone 50 mcg/actuation [place],Suspension 2 sprays NA DAILY Qty: 18.2 RF: 0 sodium chloride [Saline Mist] 0.65 % Aerosol,[place] 2 sprays NA Q4H PRN (Reason: nasal congestion) Qty: 15 RF: 0 pantoprazole [Protonix] 40 mg tablet,delayed release (DR/EC) 40 mg PO BID 14 Days Qty: 28 RF: 0 Continue lorazepam 0.5 mg tablet 0.5 mg PO BID PRN (Reason: Anxiety) RF: 0 fluoxetine 20 mg capsule 40 mg PO DAILY RF: 0 Stand-Alone Forms: My [facility] Discharge Orders: Discharge Order (Routine); Ordered 07/13/18 Ordered By: Angelica Waldron Admission Data Admit Date/Time: 07/13/18 00:19 Attending Provider: Angelica Waldron Admit Provider: Lindsey Ennis Primary Care Provider: Ashtyn Mitchell I Other Providers: Lindsey Ennis ; Lonny Gregg Service: Medical Other Pending Studies at Discharge: No
[2018-07-16 14:00] LABS: EBV Nuclear Ag Antibody < 18.00 U/ML
== END 2018-07-13 18:09 | disposition home or self-care (01) ==
LOC: ED 19:04 → 2W 19:04 → SUATTDRO 07-13 00:19 → 2W 07-13 00:50
DX: R73.03 Prediabetes; R07.89 Other chest pain; I10 Essential (primary) hypertension; F17.210 Nicotine dependence, cigarettes, uncomplicated; R09.82 Postnasal drip; M54.2 Cervicalgia; E78.5 Hyperlipidemia, unspecified; Z66 Do not resuscitate

== ENCOUNTER 2021-02-16 16:01 | Inpatient (IN) ==
[2021-02-16 18:32] LABS: Basophils # (auto) 0.03 K/uL (0-0.2); Basophils % (auto) 0.2 %; Eosinophils # (auto) 0.15 K/uL (0-0.5); Hematocrit (blood only) 45.1 % (37-47); Hemoglobin 15.5 g/dL (12.0-16.0); Immature Granulocytes # (auto) 0.05 K/uL (0.00-0.02); Immature Granulocytes % (auto) 0.3 %; Lymphocytes # (auto) 1.52 K/uL (1.2-3.4); Lymphocytes % (auto) 9.8 %; Mean Corpuscular Hemoglobin 32.1 pg (25-34); Mean Corpuscular Hgb Conc 34.4 g/dL (32-36); Mean Corpuscular Volume 93.4 fL (80-100); Mean Platelet Volume 9.3 fL (7.4-10.4); Monocytes # (auto) 1.21 K/uL (0.11-0.59); Monocytes % (auto) 7.8 %; Neutrophils # (auto) 12.56 K/uL (1.4-6.5); Neutrophils % (auto) 80.9 %; Platelet Count 294 K/uL (130-400); RDW Coefficient of Variation 14.8 % (11.5-14.5); RDW Standard Deviation 50.7 fL (36.4-46.3); Red Blood Count 4.83 M/uL (4.2-5.4); White Blood Count 15.52 K/uL (4.8-10.8)
[2021-02-16 18:34] LABS: Appearance Urine Clear (Clear); Bilirubin Urine Negative (Negative); Blood Urine Negative (Negative); Color Urine Dark Yellow; Glucose Urine UA Negative (Negative); Ketones Urine Negative (Negative); Leukocyte Esterase Urine Negative (Negative); Nitrite Urine Negative (Negative); Protein Urine Negative (Negative); Specific Gravity Urine 1.018 (1.000-1.030); Urobilinogen Urine Negative (Negative); pH Urine 5.5 (4.5-7.5)
[2021-02-16 18:42] LABS: Partial Thromboplastin Time 25.6 Seconds (21.0-31.0); Prothrombin Time 9.8 Seconds (9.0-12.0)
[2021-02-16 18:51] LABS: Alanine Aminotransferase 31 U/L (12-78); Albumin Level 3.4 gm/dl (3.4-5.0); Aspartate Aminotransferase 21 U/L (15-37); BUN Creatinine Ratio 10.3 (10-20); Blood Urea Nitrogen 9 mg/dl (7-18); Calcium 9.1 mg/dl (8.5-10.1); Carbon Dioxide 28 mmol/L (21-32); Chloride 100 mmol/L (98-107); Creatinine Clr Calc Pharmacy 83.6 ml/min; Est GFR (African American) 82.8 ml/min; Est GFR (Non-African American) 71.4 ml/min; Glucose 111 mg/dl (70-99); Magnesium 2.5 mg/dl (1.8-2.4); Potassium 4.1 mmol/L (3.5-5.1); Sodium 135 mmol/L (136-145)
[2021-02-16 19:02] LABS: Albumin Globulin Ratio 0.7 (0.9-2); Alkaline Phosphatase 186 U/L (45-117); Bilirubin,Total 0.7 mg/dl (0.2-1); Globulin 4.7 gm/dl (2.5-4.0); Total Protein 8.1 gm/dl (6.4-8.2); Troponin I < 0.015 ng/ml (0-0.045)
--- NOTE | 2021-02-16 19:29 | Emergency Department Note ---
History of Present Illness General Chief complaint: Facial Injury/Pain Stated complaint: CRAMPING, TINGLING IN HANDS/FACE,COLD Time Seen by Provider: 02/16/21 17:52 History of Present Illness Maximum Pain Intensity: 5 This is a 60-year-old female that presents to the emergency department via private vehicle with complaints of "cramping, tingling in hands/face, cold". The patient notes that she has been experiencing tingling/numbness in the hands and feet particularly in the toes and fingers over the past 3 weeks. She states that she also has been experiencing tingling to the left side of the upper and lower lips over the past 3 days. She then began with abdominal pain last night. She describes it in the lower abdomen. No known trauma or injury. Pain 5/10. No fever or chills. The patient denies any vomiting but does feel nauseous. She denies any chest pain. Patient does note a history of brain mass and has been following at [facility]. Last MRI was in October of this year she notes at [facility]. Home Medications Medication Instructions Recorded Confirmed Type cholecalciferol (vitamin D3) 50 2,000 units PO DAILY 02/13/19 02/16/21 History mcg (2,000 unit) capsule metoprolol tartrate 50 mg tablet 25 mg PO BID #90 tab 04/28/20 02/16/21 Rx buspirone 10 mg tablet 10 mg PO BID #180 tab 07/28/20 02/16/21 Rx fluoxetine 20 mg capsule 40 mg PO DAILY #60 cap 11/12/20 02/16/21 Rx Allergies Allergy/AdvReac Type Severity Reaction Status Date / Time No Known Allergies Allergy Verified 02/16/21 18:34 Past Med/Surg History Medical History (Updated 02/17/21 @ 00:33 by Skip Jane PA-C) Acid reflux Alcohol abuse Back pain Depression with anxiety Hyperlipidemia Hypertension Vitamin D deficiency Surgical History History of left knee surgery meniscus repair Hx of cholecystectomy Hx of hysterectomy Family History Father Bladder cancer Myocardial infarction Grandmother (Maternal) Breast cancer Mother Rheumatic fever Other Diabetes Hypertension Lung disease Ovarian cancer Denies family history of Prostate cancer Colorectal cancer Social History Smoking Status: Current every day smoker Cigarettes Per Day: 20; Hx Alcohol Use: Yes Alcohol type: beer Hx Substance Use: No Preferred Language: Mexican Communication Ability: Effective Objects Conservator Required: No Beliefs That Will Affect Care: None marital status: Current Living Situation: Alone current occupational status: unemployed Feels Safe at Home: Yes Physical Activity Frequency: Does not Exercise Assistive Devices: None Review of Systems A total of 10 systems reviewed and were otherwise negative Physical Exam Vital Signs Vital Signs - 24 hr 02/16/21 16:21 02/16/21 18:00 02/16/21 18:02 Temperature 37.3 C Temperature Source Temporal Artery Scan Pulse Rate 81 Pulse Rate [Finger] Respiratory Rate 90 H 22 Blood Pressure 183/104 H 172/86 H Blood Pressure [Left Arm] Blood Pressure Mean 130 114 Blood Pressure Mean [Left Arm] Pulse Oximetry 97 97 99 Oxygen Delivery Method Room Air Room Air Sepsis Recent Fever Within 48 Hours No Sepsis New/Unexplained Change in Mental Status No Sepsis Action Taken by Nursing No Action Required 02/16/21 18:30 02/16/21 20:26 Temperature Temperature Source Pulse Rate 73 Pulse Rate [Finger] 80 Respiratory Rate 22 16 Blood Pressure 167/102 H Blood Pressure [Left Arm] 147/83 H Blood Pressure Mean 123 Blood Pressure Mean [Left Arm] 104 Pulse Oximetry 95 96 Oxygen Delivery Method Room Air Sepsis Recent Fever Within 48 Hours Sepsis New/Unexplained Change in Mental Status Sepsis Action Taken by Nursing VITAL SIGNS - Vital signs and nursing notes were reviewed. Stable and afebrile. GENERAL -60-year-old female appearing her stated age who is in no acute distress. Communicates well with provider and answers questions appropriately. SKIN - Without rashes. No meningeal or petechial rash. HEAD - NC/AT. EYES - PERRL with EOMI bilaterally. Sclera anicteric. EARS - No deformities of external structures noted on gross examination bilaterally. NOSE - Midline and without cyanosis. No epistaxis or purulent drainage noted. MOUTH/OROPHARYNX - Without perioral cyanosis. NECK - Neck with FROM. No nuchal rigidity. LUNGS - Chest wall symmetric without accessory muscle use, intercostals r etractions, or central cyanosis. Normal vesicular breath sounds CTA B/L. No wheezes, rales, or rhonchi appreciated. CARDIAC - RRR with S1/S2. No murmur, rubs, or gallops appreciated. ABDOMEN - Abdominal contour normal without pulsations or visible masses. BS normoactive all four quadrants. Left greater than right lower abdominal tenderness to palpation. No guarding or rigidity. Abdomen is soft. No palpable masses, hepatosplenomegaly, or ascites noted. EXTREMITIES - No clubbing or peripheral cyanosis. +5/5 strength noted in UE/LE bilaterally. NEUROLOGIC - Cranial nerves II through XII grossly intact. No deficits. Protection Analyst strength intact. PSYCH - A&Ox3 and cooperates fully with examiner. Pt is very pleasant and interacts well with examiner. Course Administered Medications Discontinued Medications Piperacillin Sod/Tazobactam Sod (Zosyn) 4.5 gm in 120 mls @ 240 mls/hr IV NOW ONE Stop: 02/16/21 21:01 Last Infusion: 02/16/21 23:15 Dose: 0 mls/hr Documented by: [id number] Admin: 02/16/21 21:00 Dose: 240 mls/hr Documented by: [id number] Ioversol (Optiray 320 125ml) 121 ml IV ONCE ONE Stop: 02/16/21 19:36 Last Admin: 02/16/21 19:36 Dose: 121 ml Documented by: [id number] Morphine Sulfate (Morphine Sulfate 4 Mg/Ml 1 Ml Carp\\Vial) 4 mg IV Q60M PRN PRN Reason: Pain Stop: 03/02/21 22:27 Last Admin: 02/16/21 22:34 Dose: 4 mg Documented by: [id number] Ondansetron HCl (Ondansetron Inj 2 Mg/Ml 2 Ml Vial) 4 mg IV NOW STA Stop: 02/16/21 19:58 Last Admin: 02/16/21 20:01 Dose: 4 mg Documented by: [id number] Medical Decision Making Laboratory Data Result diagrams: 02/16/21 18:16 02/16/21 18:16 Lab Results 02/16/21 02/16/21 02/16/21 Range/Units 18:16 18:16 18:16 WBC 15.52 H (4.8-10.8) K/uL RBC 4.83 (4.2-5.4) M/uL Hgb 15.5 (12.0-16.0) g/dL Hct 45.1 (37-47) % MCV 93.4 (80-100) fL MCH 32.1 (25-34) pg MCHC 34.4 (32-36) g/dL RDW Std Deviation 50.7 H (36.4-46.3) fL RDW Coeff of Everett 14.8 H (11.5-14.5) % Plt Count 294 (130-400) K/uL MPV 9.3 (7.4-10.4) fL Immature Gran % (Auto) 0.3 % Neut % (Auto) 80.9 % Lymph % (Auto) 9.8 % Liberty % (Auto) 7.8 % Eos % (Auto) 1.0 % Baso % (Auto) 0.2 % Neut # (Auto) 12.56 H (1.4-6.5) K/uL Lymph # (Auto) 1.52 (1.2-3.4) K/uL Liberty # (Auto) 1.21 H (0.11-0.59) K/uL Eos # (Auto) 0.15 (0-0.5) K/uL Baso # (Auto) 0.03 (0-0.2) K/uL Immature Gran # (Auto) 0.05 H (0.00-0.02) K/uL PT 9.8 (9.0-12.0) Seconds INR 1.0 (0.9-1.1) APTT 25.6 (21.0-31.0) Seconds PTT Ratio 1.0 Sodium 135 L (136-145) mmol/L Potassium 4.1 (3.5-5.1) mmol/L Chloride 100 (98-107) mmol/L Carbon Dioxide 28 (21-32) mmol/L Anion Gap 6.0 (3-11) BUN 9 (7-18) mg/dl Creatinine 0.88 (0.6-1.2) mg/dl Est Cr Clr Drug Dosing 83.6 ml/min Est GFR ( Amer) 82.8 ml/min Est GFR (Non-Af Amer) 71.4 ml/min BUN/Creatinine Ratio 10.3 (10-20) Glucose 111 H (70-99) mg/dl Calcium 9.1 (8.5-10.1) mg/dl Magnesium 2.5 H (1.8-2.4) mg/dl Total Bilirubin 0.7 (0.2-1) mg/dl AST 21 (15-37) U/L ALT 31 (12-78) U/L Alkaline Phosphatase 186 H (45-117) U/L Troponin I < 0.015 (0-0.045) ng/ml Total Protein 8.1 (6.4-8.2) gm/dl Albumin 3.4 (3.4-5.0) gm/dl Globulin 4.7 H (2.5-4.0) gm/dl Albumin/Globulin Ratio 0.7 L (0.9-2) TSH 1.180 (0.300-4.500) uIu/ml Urine Color Urine Appearance (Clear) Urine pH (4.5-7.5) Ur Specific Austin (1.000-1.030) Urine Protein (Negative) Urine Glucose (UA) (Negative) Urine Ketones (Negative) Urine Blood (Negative) Urine Nitrite (Negative) Urine Bilirubin (Negative) Urine Urobilinogen (Negative) Ur Leukocyte Esterase (Negative) COVID-19 Eval Order SARS-CoV-2 (PCR) (Negative) 02/16/21 02/16/21 02/16/21 Range/Units 18:16 20:30 20:30 WBC (4.8-10.8) K/uL RBC (4.2-5.4) M/uL Hgb (12.0-16.0) g/dL Hct (37-47) % MCV (80-100) fL MCH (25-34) pg MCHC (32-36) g/dL RDW Std Deviation (36.4-46.3) fL RDW Coeff of Everett (11.5-14.5) % Plt Count (130-400) K/uL MPV (7.4-10.4) fL Immature Gran % (Auto) % Neut % (Auto) % Lymph % (Auto) % Liberty % (Auto) % Eos % (Auto) % Baso % (Auto) % Neut # (Auto) (1.4-6.5) K/uL Lymph # (Auto) (1.2-3.4) K/uL Liberty # (Auto) (0.11-0.59) K/uL Eos # (Auto) (0-0.5) K/uL Baso # (Auto) (0-0.2) K/uL Immature Gran # (Auto) (0.00-0.02) K/uL PT (9.0-12.0) Seconds INR (0.9-1.1) APTT (21.0-31.0) Seconds PTT Ratio Sodium (136-145) mmol/L Potassium (3.5-5.1) mmol/L Chloride (98-107) mmol/L Carbon Dioxide (21-32) mmol/L Anion Gap (3-11) BUN (7-18) mg/dl Creatinine (0.6-1.2) mg/dl Est Cr Clr Drug Dosing ml/min Est GFR ( Amer) ml/min Est GFR (Non-Af Amer) ml/min BUN/Creatinine Ratio (10-20) Glucose (70-99) mg/dl Calcium (8.5-10.1) mg/dl Magnesium (1.8-2.4) mg/dl Total Bilirubin (0.2-1) mg/dl AST (15-37) U/L ALT (12-78) U/L Alkaline Phosphatase (45-117) U/L Troponin I (0-0.045) ng/ml Total Protein (6.4-8.2) gm/dl Albumin (3.4-5.0) gm/dl Globulin (2.5-4.0) gm/dl Albumin/Globulin Ratio (0.9-2) TSH (0.300-4.500) uIu/ml Urine Color Dark Yellow Urine Appearance Clear (Clear) Urine pH 5.5 (4.5-7.5) Ur Specific Austin 1.018 (1.000-1.030) Urine Protein Negative (Negative) Urine Glucose (UA) Negative (Negative) Urine Ketones Negative (Negative) Urine Blood Negative (Negative) Urine Nitrite Negative (Negative) Urine Bilirubin Negative (Negative) Urine Urobilinogen Negative (Negative) Ur Leukocyte Esterase Negative (Negative) COVID-19 Eval Order Covid19 at [facility] SARS-CoV-2 (PCR) NEGATIVE (Negative) Imaging Data Radiologist's Impression: Abdomen/Pelvis CT 02/16/21 18:36 CT OF THE ABDOMEN AND PELVIS WITH CONTRAST CLINICAL HISTORY: Lower abdominal pain. COMPARISON STUDY: Right upper quadrant ultrasound July 24, 2018. CT of the abdomen and pelvis August 28, 2011. TECHNIQUE: Following IV administration of 121 mL of Optiray, axial images of the abdomen and pelvis were obtained from the lung bases to the proximal femurs. Images were reviewed in the axial, sagittal, and coronal planes. IV contrast was administered without complication. Automated exposure control was utilized for the study. A dose lowering technique was utilized adhering to the principles of ALARA. FINDINGS: Lung bases are unremarkable. There is no biliary ductal dilatation status post cholecystectomy. There is no pancreatic ductal dilatation. The spleen, adrenal glands and kidneys are unremarkable with exception of a cyst ángel sing from the lower pole of the right kidney. There is no hydronephrosis. There is probable hepatic steatosis. No hepatic lesions are identified. There is no evidence for a bowel obstruction. Note is made of sigmoid diverticulosis. There is moderate wall thickening of the proximal sigmoid colon with moderate pericolonic infiltration. A few locules of extraluminal gas are present. There is no free air or abscess. There is trace fluid within the pelvis. Major vasculature is patent. No acute fracture or suspicious lesion is identified within the visualized skeletal structures. IMPRESSION: Acute sigmoid diverticulitis. No abscess. A few locules of extraluminal gas consistent with contained perforation. ACT 112: Negative or not required by law. Electronically signed by: Kevon Hayden M.D. 02/16/2021 8:18 PM Head CTA 02/16/21 18:36 CT angio head wo/w CLINICAL HISTORY: extremity tingling, L perioral tingling/numbness COMPARISON STUDY: MRI of the brain May 04, 2020. TECHNIQUE: Unenhanced and arterial phase imaging of the head was performed. Intravenous injection 121 cc of Optiray 320 was uneventful. Sagittal and coronal reconstructions were viewed as well as maximal intensity projections on an independent 3-D workstation. Automated exposure control was utilized for the study. A dose lowering technique was utilized adhering to the principles of ALARA. FINDINGS: No acute intracranial hemorrhage, midline shift or mass effect is present. Ventricular system is normal. Basal cisterns are patent. There are no extra-axial collections. Guevara-white differentiation is maintained. There are no findings to suggest acute dural sinus thrombosis or acute territorial infarct. An enhancing partially calcified extra-axial lesion abutting the right aspect of the clivus at the level of the medulla measures 1.3 x 1 cm. This is similar to MRI May 04, 2020. The bilateral M1, 2, A1 and A2 segments are patent. There is no central vessel occlusion. There is no intracranial aneurysm. Posterior circulation is intact. Multiple small calvarial lucencies are probably benign. IMPRESSION: 1. No acute intracranial findings. 2. No central vessel occlusion. No intracranial aneurysm. 3. No change in a 1.3 cm meningioma abutting the right aspect of the clivus at the level of the medulla since MRI of May 04, 2020. ACT 112: Negative or not required by law. Electronically signed by: Kevon Hayden M.D. 02/16/2021 8:01 PM Neck CTA 02/16/21 18:36 CT ANGIOGRAPHY OF THE NECK WITH CONTRAST CLINICAL HISTORY: extremity tingling, L perioral tingling/numbness COMPARISON STUDY: No previous studies for comparison. Technique: CT angiography of the carotid and vertebral arteries was obtained using Optiray and 3D reconstruction on an independent workstation. NASCET criteria was utilized. Automated exposure control was utilized for the study. A dose lowering technique was utilized adhering to the principles of ALARA. Findings: A 1.4 x 0.7 cm groundglass right upper lobe nodule on axial image 11 of 346 is present. Please note that the CT of the head will be reported separately. This better depicts a meningioma within the right aspect of the pos terior fossa along the lateral aspect of the medulla. The bilateral common carotid, cervical internal carotid and vertebral arteries are patent. There is no dissection within the neck. There is mild plaque within the left carotid bifurcation. There is no aneurysm within the neck. IMPRESSION: 1. No stenosis or dissection within the major vessels of the neck. 2. 1.4 x 0.7 cm groundglass right upper lobe nodule. This is indeterminate and a small neoplasm cannot be excluded. A nonemergent chest CT is recommended. ACT 112: Positive. There are findings on this exam that require communication between the performing entity and the patient following Patient Test Result Information Act ([place] Act 112) guidelines. Electronically signed by: Kevon Hayden M.D. 02/16/2021 8:12 PM MDM Narrative Patient was seen and evaluated as above in room B02. Review was performed of nursing notes and vital signs. I did review pertinent previous visits and patient history. After obtaining a thorough history and physical examination the above work up was performed. Patient presents to us today with a few different symptoms. The first of which is left-sided perioral numbness/tingling over the past 3 days with associated numbness in the hands and feet bilaterally x a few weeks. She is nontoxic on exam. Vital signs stable. She also is experiencing left greater than right lower abdominal discomfort that began yesterday. She zavala s associated nausea but no vomiting. Options of care were discussed with the patient. IV access was established. Labs were drawn. There is mild leukocytosis 15.52 without anemia. Mild hyponatremia at 135, glucose 111. Hypermagnesemia at 2.5. Alk phos 186. Troponin negative. TSH reveals a euthyroid state. Urine does not suggest infection. Covid testing negative. Patient did undergo CTA of the head and neck noting the numbness/tingling as well as a CT scan of the abdomen and pelvis secondary to the abdominal discomfort in the setting of leukocytosis. Results of these as above. There is acute sigmoid diverticulitis. No abscess. A few locules of extraluminal gas consistent with contained perforation. CTA angio head reveals no change in the 1.3 cm meningioma and the remainder of the findings are the normal limits the CTA of the neck is reassuring from a vessel standpoint however there is comment of a 1.4 x 0.7 cm groundglass right upper lobe nodule. Nonemergent chest CT recommended. I did review these findings with the patient. She was given IV Zosyn. Patient will require further evaluation and management in the inpatient setting noting the diverticulitis with perforation among other symptoms. Covid testing negative. Case discussed with the hospitalist as well as the general surgery team. Please refer to further documentation regarding her stay. EKG was reviewed by myself and found to be Normal Sinus Rhythm at a rate of 73 beats per minute and per my interpretation reveals no ST elevation. QTc 440. QRS 80. An order was placed for continuous cardiac monitoring. The monitor shows a rate of 92 with sinus rhythm. I attest that I have personally reviewed the patient medication list. GCS: 15 In the evaluation and treatment of this patient the following differential diagnoses were entertained: CVA, TIA, mass-effect, intracranial mass, sepsis, meningitis, encephalitis, alcohol withdrawal, electrolyte disturbance, acute abdomen, bowel obstruction, UTI, pyelonephritis, Deivert colitis, among others. Impression & Plan Diverticulitis of colon with perforation, Nausea, Facial tingling, Numbness and tingling of both upper extremities, Numbness and tingling of both lower extremities, Hyponatremia Discharge Plan Visit Data Chief Complaint: Facial Injury/Pain Stated Complaint: CRAMPING, TINGLING IN HANDS/FACE,COLD ED Provider: Semaj Velasquez ED Midlevel Provider: Skip Jane Discharge Problem: Diverticulitis of colon with perforation, Nausea, Facial tingling, Numbness and tingling of both upper extremities, Numbness and tingling of both lower extremities, Hyponatremia Patient Disposition: Admitted As Inpatient Condition: Good Discharge Instructions Interventions: ED Discharge Assessment Last Done: 02/16/21 22:38
[2021-02-16] MEDS ORDERED: OPTIRAY 320 125ml IV ONE (19:35)
[2021-02-16] MEDS ORDERED: ONDANSETRON INJ 2 MG/ML 2 ML VIAL IV STA (19:57)
--- NOTE | 2021-02-16 20:02 | CT Scan Report ---
CT angio head wo/w CLINICAL HISTORY: extremity tingling, L perioral tingling/numbness COMPARISON STUDY: MRI of the brain May 04, 2020. TECHNIQUE: Unenhanced and arterial phase imaging of the head was performed. Intravenous injection 121 cc of Optiray 320 was uneventful. Sagittal and coronal reconstructions were viewed as well as nova l intensity projections on an independent 3-D workstation. Automated exposure control was utilized fo r the study. A dose lowering technique was utilized adhering to the principles of ALARA. FINDINGS: No acute intracranial hemorrhage, midline shift or mass effect is present. Ventricular syst em is normal. Basal cisterns are patent. There are no extra-axial collections. Guevara-white differentia tion is maintained. There are no findings to suggest acute dural sinus thrombosis or acute territoria l infarct. An enhancing partially calcified extra-axial lesion abutting the right aspect of the clivu s at the level of the medulla measures 1.3 x 1 cm. This is similar to MRI May 04, 2020. The bilateral M1, 2, A1 and A2 segments are patent. There is no central vessel occlusion. There is no intracranial aneurysm. Posterior circulation is intact. Multiple small calvarial lucencies are proba casey benign. IMPRESSION: 1. No acute intracranial findings. 2. No central vessel occlusion. No intracranial aneurysm. 3. No change in a 1.3 cm meningioma abutting the right aspect of the clivus at the level of the medul la since MRI of May 04, 2020. ACT 112: Negative or not required by law. Electronically signed by: Kevon Hayden M.D. 02/16/2021 8:01 PM
--- NOTE | 2021-02-16 20:13 | CT Scan Report ---
CT ANGIOGRAPHY OF THE NECK WITH CONTRAST CLINICAL HISTORY: extremity tingling, L perioral tingling/numbness COMPARISON STUDY: No previous studies for comparison. Technique: CT angiography of the carotid and vertebral arteries was obtained using Optiray and 3D rec onstruction on an independent workstation. NASCET criteria was utilized. Automated exposure control was utilized for the study. A dose lowering technique was utilized adhering to the principles of ALA RA. Findings: A 1.4 x 0.7 cm groundglass right upper lobe nodule on axial image 11 of 346 is present. Ple ase note that the CT of the head will be reported separately. This better depicts a meningioma within the right aspect of the posterior fossa along the lateral aspect of the medulla. The bilateral commo n carotid, cervical internal carotid and vertebral arteries are patent. There is no dissection within the neck. There is mild plaque within the left carotid bifurcation. There is no aneurysm within the neck. IMPRESSION: 1. No stenosis or dissection within the major vessels of the neck. 2. 1.4 x 0.7 cm groundglass right upper lobe nodule. This is indeterminate and a small neoplasm canno t be excluded. A nonemergent chest CT is recommended. ACT 112: Positive. There are findings on this exam that require communication between the performing entity and the patient following Patient Test Result Information Act ([place] Act 112) guidelines. Electronically signed by: Kevon Hayden M.D. 02/16/2021 8:12 PM
--- NOTE | 2021-02-16 20:19 | CT Scan Report ---
CT OF THE ABDOMEN AND PELVIS WITH CONTRAST CLINICAL HISTORY: Lower abdominal pain. COMPARISON STUDY: Right upper quadrant ultrasound July 24, 2018. CT of the abdomen and pelvis Ap ril 2011. TECHNIQUE: Following IV administration of 121 mL of Optiray, axial images of the abdomen and pelvis w ere obtained from the lung bases to the proximal femurs. Images were reviewed in the axial, sagittal, and coronal planes. IV contrast was administered without complication. Automated exposure control w as utilized for the study. A dose lowering technique was utilized adhering to the principles of ARLENE Mcnally. FINDINGS: Lung bases are unremarkable. There is no biliary ductal dilatation status post cholecystect sabrina. There is no pancreatic ductal dilatation. The spleen, adrenal glands and kidneys are unremarkabl e with exception of a cyst arising from the lower pole of the right kidney. There is no hydronephrosi s. There is probable hepatic steatosis. No hepatic lesions are identified. There is no evidence for a bowel obstruction. Note is made of sigmoid diverticulosis. There is moderate wall thickening of the proximal sigmoid colon with moderate pericolonic infiltration. A few locules of extraluminal gas are present. There is no free air or abscess. There is trace fluid within the pelvis. Major vasculature i s patent. No acute fracture or suspicious lesion is identified within the visualized skeletal structu res. IMPRESSION: Acute sigmoid diverticulitis. No abscess. A few locules of extraluminal gas consistent w ith contained perforation. ACT 112: Negative or not required by law. Electronically signed by: Kevon Hayden M.D. 02/16/2021 8:18 PM
[2021-02-16] MEDS ORDERED: PIPERACILLIN/TAZOBACTAM 4.5 GM/120 ML BAG IV ONE (20:32)
[2021-02-16] MEDS ORDERED: PIPERACILL/TAZOBAC CONSULT ACTIVE PRN ×2 (20:32→23:01)
--- NOTE | 2021-02-16 20:57 | Surgery Consultation ---
Date of Consultation February 16, 2021 Assessment & Plan (1) Diverticulitis: Due to the patient's diverticulitis she will be admitted to the hospital in the hospital service. We recommend proceeding as follows: Provide analgesics Provide antiemetics Provide IV fluid for hydration Keep patient n.p.o. except for ice chips Continue antibiotics. The patient has received her first dose in the emergency department in the form of Zosyn which should continue I discussed with the patient her condition. I have noted to her that it would be ideal to treat her underlying diverticulitis in a conservative manner as outlined above as any emergent surgery may necessitate a colostomy. It would be ideal for patient to recover from this acute infection and also undergo repeat colonoscopy before any surgical intervention is entertained. Repeat imaging of patient's abdomen can be considered on clinical grounds, however if clinical improvement is noted we may not have to undertake additional imaging. Additional plan as directed by the hospital service Supervising Physician Co-Signing Physician Notes I personally saw and evaluated the patient with Arsenio Kramer PA-C and agree with the assessment and plan 60 yo female with acute diverticulitis -Keep NPO -IV ABX -Pain control PRN -Continue to monitor for fevers, trend WBC History of Present Illness Reason for Consultation: Abdominal pain/diverticulitis History of Present Illness This is a 6-year-old female who says using her normal state of health until yesterday she developed abdominal pain in her lower abdomen. She says the pain does not radiate and is confined to the right and left lower quadrants. She does not note any palliative or provocative factors other than medicines that were ministered in the emergency department. She says she has had poor appetite and she notes nausea without vomiting. She denies any fevers, shakes, chills. Patient says that she had a bowel movement earlier today which was normal for her consisting of some soft stool with some liquid element to it. Patient says that she has had diverticulitis in the past but is never required hospitalization. She reports that she has had a colonoscopy she believes within the last 2 years and to the best of her knowledge there is no significant pathology noted on the study. She says she has had previous surgeries including a and a cholecystectomy. In addition to her nominal complaints the patient has noted some numbness and tingling of her hands. She denied any slurred or garbled speech. She denied any inability to move her arms or legs. Because of her symptomatology she presented to the emergency department. In the emergency department patient did have labs and imaging which independently reviewed. CBC revealed white blood cell count was 15.5. Hemoglobin and hematocrit are both noted to be normal. Patient's platelet count was noted to be normal. Chemistry profile revealed her sodium was 135. Potassium, BUN, and creatinine were all noted to be normal. Urinalysis was not indicative of infection. A Covid test has been ordered and is pending.The patient did have a CT scan of the abdomen showed acute sigmoid diverticulitis with a few locules of extraluminal gas and a contained perforation however no abscess was noted.In addition the patient had a CT scan of the head that showed no acute intracranial findings or no central vessel occlusions. She was noted to have a 1.3 cm meningioma that appeared stable since imaging performed in April 2020. Finally the patient had a CT angiogram of her neck that showed no stenosis or dissection of the major major vessels of the neck At the time of interview she was resting in bed and she was in no distress Allergies Allergy/AdvReac Type Severity Reaction Status Date / Time No Known Allergies Allergy Verified 02/16/21 18:34 Home Medications Medication Instructions Recorded Confirmed Type cholecalciferol (vitamin D3) 50 2,000 units PO DAILY 02/13/19 02/16/21 History mcg (2,000 unit) capsule metoprolol tartrate 50 mg tablet 25 mg PO BID #90 tab 04/28/20 02/16/21 Rx buspirone 10 mg tablet 10 mg PO BID #180 tab 07/28/20 02/16/21 Rx fluoxetine 20 mg capsule 40 mg PO DAILY #60 cap 11/12/20 02/16/21 Rx Patient History Medical History (Updated 02/17/21 @ 02:06 by Lindsey Ennis DO) Acid reflux Alcohol dependence, daily use Back pain Depression with anxiety Hyperlipidemia Hypertension Vitamin D deficiency Surgical History History of left knee surgery meniscus repair Hx of cholecystectomy Hx of hysterectomy Family History Father Bladder cancer Myocardial infarction Grandmother (Maternal) Breast cancer Mother Rheumatic fever Other Diabetes Hypertension Lung disease Ovarian cancer Denies family history of Prostate cancer Colorectal cancer Social History Smoking Status: Current every day smoker Cigarettes Per Day: 20; Hx Alcohol Use: Yes Alcohol type: beer Hx Substance Use: No Preferred Language: Greenlandic Communication Ability: Effective Delivery Rep Required: No Beliefs That Will Affect Care: None marital status: Current Living Situation: Alone current occupational status: unemployed Feels Safe at Home: Yes Physical Activity Frequency: Does not Exercise Assistive Devices: None Review of Systems Constitutional: no fever and no chills Eyes: no diplopia Ear, Nose, Mouth, Throat: no ear pain Respiratory: no cough and no dyspnea Cardiovascular: no chest pain Gastrointestinal: + abdominal pain and + nausea; no vomiting, no change in bowel habits and no diarrhea/loose stools Genitourinary: no dysuria and no urinary frequency Musculoskeletal: no back pain Integumentary: no rash Neurologic: no localized weakness Physical Exam Constitutional: well developed, well nourished and + obese; no acute distress Eyes: no conjunctival abnormality ENMT: Ears: no hearing impairment and no external ear abnormality Mouth: no oropharynx abnormality Neck: trachea midline Respiratory: normal respiratory effort; no respiratory distress and no labored breathing Cardiovascular: Rate/Rhythm: regular rate and regular rhythm Gastrointestinal (Abdomen): There is rotund and soft. Bowel sounds are present. There is pain noted with palpation in the right lower quadrant and the left lower quadrant. There is no rebound tenderness or guarding. Musculoskeletal: No calf tenderness Skin: no rashes Neurologic: moves all extremities Psychiatric: Orientation: alert and oriented x 3 Affect: + anxious affect Results & Data ([facility]) Vital Signs (Past 12 Hours) Vital Signs Temp Pulse Pulse Resp BP BP Pulse Ox 02/16/21 20:26 80 16 147/83 H 96 02/16/21 18:30 73 22 167/102 H 95 02/16/21 18:02 99 02/16/21 18:00 81 22 172/86 H 97 02/16/21 16:21 37.3 C 90 H 183/104 H 97 PG Care Time/CCT Total # of Minutes Spent Total Time Spent with Patient: Total time spent is greater than 50% in coordination of care (as documented) at patient's floor/unit and/or counseling patient: Coding Level of Care Code 00375 Inpt Consult Level 5 Diagnoses Diverticulitis K57.92
--- NOTE | 2021-02-16 21:58 | History & Physical Report ---
Date of Service February 16, 2021 Assessment & Plan (1) Diverticulitis of colon with perforation: Plan: 60yo female presenting with acute sigmoid diverticulitis with perforation. Perforation is contained. Patient is hemodynamically stable, non-toxic in appearance. General Surgery has been consulted and has evaluated the patient in the ER. No surgical intervention at this time. -Admit to medical service -NPO except chips/sips -Monitor for progression of abdominal pain, distention or development of peritonitis -Zosyn -Oxycodone and IV morphine as needed for pain -Zofran as needed for nausea (2) Facial tingling: Plan: Etiology unclear. Patient with stable meningioma re-imaged today. Nonfocal neurological exam. Possible anxiety contributing to tingling sensation vs developing neuropathy. ?DM, ?B12 deficiency, ?long-term effects of daily EtOH use -Check AIC, B12 (3) Numbness and tingling of both upper extremities: Plan: Patient endorses paresthesias involving bilateral fingertips as well as feet and left side of mouth. Etiology unclear. Neurological exam is unremarkable as is CTA of the head and neck (stable chronic findings) ?DM, B12 deficiency, EtOH effects, anxiety? -Check a1c, b12 (4) Numbness and tingling of both lower extremities: Plan: As above (5) Hypertension: Plan: Blood pressure well controlled at present. 139/85 -Pain control as above -Continue home medication - Metoprolol 25mg po BID -Continue to monitor BP (6) Depression with anxiety: Plan: Patient feels anxious given current events and hospitalization -Continue home Buspirone 10mg po BID -Continue home Prozac 40mg daily -Trial of hydroxyzine 25mg po TID as needed for anxiety -Melatonin qHS as needed for insomnia (7) Alcohol dependence, daily use: Plan: Patient reports drinking 6 drinks/day. No history of withdrawal symptoms -Thiamine 100mg po daily -Folic Acid 1mg po daily -AWSS at risk protocol with Ativan as needed. Do not anticipate withdrawal (8) Lesion of lung: Plan: Incidental finding on CTA neck of a 1.4 x 0.7 ground glass RUL nodule. Indeterminant. -Check CT chest to further qualify lesion Plan: F/E/N - LR at 125mL/hr x 2 liters, monitor electrolytes and replete as needed, Pn=405 Ppx - Lovenox 40mg Code - DNR/DNI per discussion with patient Dispo - Admit to medical with telemetry History of Present Illness Chief Complaint: abdominal pain Primary Care Provider: Yovani Starkey DO Pat Barrera is a 60yo female presenting with abdominal pain. Patient had acute onset of LLQ abdominal pain beginning last evening. Pain is cramping in nature, 6/10 in severity. She denies fever but has been having some chills. She denies abdominal bloating, nausea/vomiting/diarrhea. She had a normal bowel movement today without blood. No oral intake today. Additionally she is complaining of perioral numbness for the last 2-3 days and numbness and tingling of her hands and feet for the last two weeks. She feels that muscular strength and balance are intact. She has been feeling more anxious than usual lately. Drinks 6 alcoholic beverages/day. Last drink was last evening. No history of withdrawal symptoms, DTs or seizures. ER Course: Zofran, Zosyn Allergies Allergy/AdvReac Type Severity Reaction Status Date / Time No Known Allergies Allergy Verified 02/16/21 18:34 Home Medications Medication Instructions Recorded Confirmed Type cholecalciferol (vitamin D3) 50 2,000 units PO DAILY 02/13/19 02/16/21 History mcg (2,000 unit) capsule metoprolol tartrate 50 mg tablet 25 mg PO BID #90 tab 04/28/20 02/16/21 Rx buspirone 10 mg tablet 10 mg PO BID #180 tab 07/28/20 02/16/21 Rx fluoxetine 20 mg capsule 40 mg PO DAILY #60 cap 11/12/20 02/16/21 Rx Past Med/Surg History Medical History (Updated 02/17/21 @ 02:06 by Lindsey Ennis DO) Acid reflux Alcohol dependence, daily use Back pain Depression with anxiety Hyperlipidemia Hypertension Vitamin D deficiency Surgical History History of left knee surgery meniscus repair Hx of cholecystectomy Hx of hysterectomy Family History Father Bladder cancer Myocardial infarction Grandmother (Maternal) Breast cancer Mother Rheumatic fever Other Diabetes Hypertension Lung disease Ovarian cancer Denies family history of Prostate cancer Colorectal cancer Social History Smoking Status: Current every day smoker Cigarettes Per Day: 20; Hx Alcohol Use: Yes Alcohol type: beer Hx Substance Use: No Preferred Language: Nepalese Communication Ability: Effective 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 Beliefs That Will Affect Care: None marital status: Current Living Situation: Alone current occupational status: unemployed Feels Safe at Home: Yes Physical Activity Frequency: Does not Exercise Assistive Devices: None Review of Systems Review of Systems: All systems reviewed & are unremarkable except as noted in HPI & below Physical Exam Physical Exam: General: patient resting comfortably, NAD, non-toxic in ap pearance, AA&O x 4 Skin: warm, dry, intact, no rashes or lesions HEENT: NC/AT, PERRL, EOMI, anicteric sclera, conjunctiva without injection, external ear normal to inspection and nontender, nares patent, moist mucus membranes, dentition intact, no oropharyngeal lesions, neck supple, trachea midline, no LAD, no thyromegaly, no JVD Heart: +S1/S2, regular, no m/r/g Lungs: equal air entry bilaterally, no rales/rhonchi/wheezes Abd: +BS, soft, ND, tenderness in lower abdomen bilaterally without rebound/guarding, no masses/organomegaly/ascites Ext: warm, 2+ pulses in UE/LE bilaterally, no clubbing/cyanosis or edema Neuro: nonfocal, patient AA&O x 4, speech intact, no facial droop, moving all extremities on command with equal strength 5/5 Results & Data Results & Data ([facility]) Vital Signs (Past 12 Hours) Vital Signs Temp Pulse Pulse Resp BP BP Pulse Ox 02/16/21 20:26 80 16 147/83 H 96 02/16/21 18:30 73 22 167/102 H 95 02/16/21 18:02 99 02/16/21 18:00 81 22 172/86 H 97 02/16/21 16:21 37.3 C 90 H 183/104 H 97 Laboratory Results Laboratory Results WBC 15.52 K/uL (4.8-10.8) H 02/16/21 18:16 RBC 4.83 M/uL (4.2-5.4) 02/16/21 18:16 Hgb 15.5 g/dL (12.0-16.0) 02/16/21 18:16 Hct 45.1 % (37-47) 02/16/21 18:16 MCV 93.4 fL (80-100) 02/16/21 18:16 MCH 32.1 pg (25-34) 02/16/21 18:16 MCHC 34.4 g/dL (32-36) 02/16/21 18:16 RDW Std Deviation 50.7 fL (36.4-46.3) H 02/16/21 18:16 RDW Coeff of [place] 14.8 % (11.5-14.5) H 02/16/21 18:16 Plt Count 294 K/uL (130-400) 02/16/21 18:16 MPV 9.3 fL (7.4-10.4) 02/16/21 18:16 Immature Gran % (Auto) 0.3 % 02/16/21 18:16 Neut % (Auto) 80.9 % 02/16/21 18:16 Lymph % (Auto) 9.8 % 02/16/21 18:16 Foard % (Auto) 7.8 % 02/16/21 18:16 Eos % (Auto) 1.0 % 02/16/21 18:16 Baso % (Auto) 0.2 % 02/16/21 18:16 Neut # (Auto) 12.56 K/uL (1.4-6.5) H 02/16/21 18:16 Lymph # (Auto) 1.52 K/uL (1.2-3.4) 02/16/21 18:16 Foard # (Auto) 1.21 K/uL (0.11-0.59) H 02/16/21 18:16 Eos # (Auto) 0.15 K/uL (0-0.5) 02/16/21 18:16 Baso # (Auto) 0.03 K/uL (0-0.2) 02/16/21 18:16 Immature Gran # (Auto) 0.05 K/uL (0.00-0.02) H 02/16/21 18:16 PT 9.8 Seconds (9.0-12.0) 02/16/21 18:16 INR 1.0 (0.9-1.1) 02/16/21 18:16 APTT 25.6 Seconds (21.0-31.0) 02/16/21 18:16 PTT Ratio 1.0 02/16/21 18:16 Sodium 135 mmol/L (136-145) L 02/16/21 18:16 Potassium 4.1 mmol/L (3.5-5.1) 02/16/21 18:16 Chloride 100 mmol/L (98-107) 02/16/21 18:16 Carbon Dioxide 28 mmol/L (21-32) 02/16/21 18:16 Anion Gap 6.0 (3-11) 02/16/21 18:16 BUN 9 mg/dl (7-18) 02/16/21 18:16 Creatinine 0.88 mg/dl (0.6-1.2) 02/16/21 18:16 Est Cr Clr Drug Dosing 83.6 ml/min 02/16/21 18:16 Est GFR ( Amer) 82.8 ml/min 02/16/21 18:16 Est GFR (Non-Af Amer) 71.4 ml/min 02/16/21 18:16 BUN/Creatinine Ratio 10.3 (10-20) 02/16/21 18:16 Glucose 111 mg/dl (70-99) H 02/16/21 18:16 Calcium 9.1 mg/dl (8.5-10.1) 02/16/21 18:16 Magnesium 2.5 mg/dl (1.8-2.4) H 02/16/21 18:16 Total Bilirubin 0.7 mg/dl (0.2-1) 02/16/21 18:16 AST 21 U/L (15-37) 02/16/21 18:16 ALT 31 U/L (12-78) 02/16/21 18:16 Alkaline Phosphatase 186 U/L (45-117) H 02/16/21 18:16 Troponin I < 0.015 ng/ml (0-0.045) 02/16/21 18:16 Total Protein 8.1 gm/dl (6.4-8.2) 02/16/21 18:16 Albumin 3.4 gm/dl (3.4-5.0) 02/16/21 18:16 Globulin 4.7 gm/dl (2.5-4.0) H 02/16/21 18:16 Albumin/Globulin Ratio 0.7 (0.9-2) L 02/16/21 18:16 TSH 1.180 uIu/ml (0.300-4.500) 02/16/21 18:16 Urine Color Dark Yellow 02/16/21 18:16 Urine Appearance Clear (Clear) 02/16/21 18:16 Urine pH 5.5 (4.5-7.5) 02/16/21 18:16 Ur Specific [place] 1.018 (1.000-1.030) 02/16/21 18:16 Urine Protein Negative (Negative) 02/16/21 18:16 Urine Glucose (UA) Negative (Negative) 02/16/21 18:16 Urine Ketones Negative (Negative) 02/16/21 18:16 Urine Blood Negative (Negative) 02/16/21 18:16 Urine Nitrite Negative (Negative) 02/16/21 18:16 Urine Bilirubin Negative (Negative) 02/16/21 18:16 Urine Urobilinogen Negative (Negative) 02/16/21 18:16 Ur Leukocyte Esterase Negative (Negative) 02/16/21 18:16 COVID-19 Eval Order Covid19 at [facility] 02/16/21 20:30 SARS-CoV-2 (PCR) NEGATIVE (Negative) 02/16/21 20:30 Impressions Abdomen/Pelvis CT 02/16/21 18:36 CT OF THE ABDOMEN AND PELVIS WITH CONTRAST CLINICAL HISTORY: Lower abdominal pain. COMPARISON STUDY: Right upper quadrant ultrasound July 24, 2018. CT of the abdomen and pelvis August 28, 2011. TECHNIQUE: Following IV administration of 121 mL of Optiray, axial images of the abdomen and pelvis were obtained from the lung bases to the proximal femurs. Images were reviewed in the axial, sagittal, and coronal planes. IV contrast was administered without complication. Automated exposure control was utilized for the study. A dose lowering technique was utilized adhering to the principles of ALARA. FINDINGS: Lung bases are unremarkable. There is no biliary ductal dilatation status post cholecystectomy. There is no pancreatic ductal dilatation. The spleen, adrenal glands and kidneys are unremarkable with exception of a cyst arising from the lower pole of the right kidney. There is no hydronephrosis. There is probable hepatic steatosis. No hepatic lesions are identified. There is no evidence for a bowel obstruction. Note is made of sigmoid diverticulosis. There is moderate wall thickening of the proximal sigmoid colon with moderate pericolonic infiltration. A few locules of extraluminal gas are present. There is no free air or abscess. There is trace fluid within the pelvis. Major vasculature is patent. No acute fracture or suspicious lesion is identified within the visualized skeletal structures. IMPRESSION: Acute sigmoid diverticulitis. No abscess. A few locules of extraluminal gas consistent with contained perforation. ACT 112: Negative or not required by law. Electronically signed by: Kevon Hayden M.D. 02/16/2021 8:18 PM Head CTA 02/16/21 18:36 CT angio head wo/w CLINICAL HISTORY: extremity tingling, L perioral tingling/numbness COMPARISON STUDY: MRI of the brain May 04, 2020. TECHNIQUE: Unenhanced and arterial phase imaging of the head was performed. Intravenous injection 121 cc of Optiray 320 was uneventful. Sagittal and coronal reconstructions were viewed as well as maximal intensity projections on an independent 3-D workstation. Automated exposure control was utilized for the study. A dose lowering technique was utilized adhering to the principles of ALARA. FINDINGS: No acute intracranial hemorrhage, midline shift or mass effect is present. Ventricular system is normal. Basal cisterns are patent. There are no extra-axial collections. Guevara-white differentiation is maintained. There are no findings to suggest acute dural sinus thrombosis or acute territorial infarct. An enhancing partially calcified extra-axial lesion abutting the right aspect of the clivus at the level of the medulla measures 1.3 x 1 cm. This is similar to MRI May 04, 2020. The bilateral M1, 2, A1 and A2 segments are patent. There is no central vessel occlusion. There is no intracranial aneurysm. Posterior circulation is intact. Multiple small calvarial lucencies are probably benign. IMPRESSION: 1. No acute intracranial findings. 2. No central vessel occlusion. No intracranial aneurysm. 3. No change in a 1.3 cm meningioma abutting the right aspect of the clivus at the level of the medulla since MRI of May 04, 2020. ACT 112: Negative or not required by law. Electronically signed by: Kevon Hayden M.D. 02/16/2021 8:01 PM Neck CTA 02/16/21 18:36 CT ANGIOGRAPHY OF THE NECK WITH CONTRAST CLINICAL HISTORY: extremity tingling, L perioral tingling/numbness COMPARISON STUDY: No previous studies for comparison. Technique: CT angiography of the carotid and vertebral arteries was obtained using Optiray and 3D reconstruction on an independent workstation. NASCET criteria was utilized. Automated exposure control was utilized for the study. A dose lowering technique was utilized adhering to the principles of ALARA. Findings: A 1.4 x 0.7 cm groundglass right upper lobe nodule on axial image 11 of 346 is present. Please note that the CT of the head will be reported separately. This better depicts a meningioma within the right aspect of the posterior fossa along the lateral aspect of the medulla. The bilateral common carotid, cervical internal carotid and vertebral arteries are patent. There is no dissection within the neck. There is mild plaque within the left carotid bifurcation. There is no aneurysm within the neck. IMPRESSION: 1. No stenosis or dissection within the major vessels of the neck. 2. 1.4 x 0.7 cm groundglass right upper lobe nodule. This is indeterminate and a small neoplasm cannot be excluded. A nonemergent chest CT is recommended. ACT 112: Positive. There are findings on this exam that require communication between the performing entity and the patient following Patient Test Result Information Act ([place] Act 112) guidelines. Electronically signed by: Kevon Hayden M.D. 02/16/2021 8:12 PM ECG Additional Comments: EKG wtih NSR at 73 bpm, normal axis, GJ=103, QRS=80, FBt=625, no acute ischemic changes, no change from prior study Code Status & VTE Plan VTE Prophylaxis Plan VTE Prophylaxis will be ordered: Yes PG Care Time/CCT Total # of Minutes Spent Total Time Spent with Patient: Total time spent is greater than 50% in coordination of care (as documented) at patient's floor/unit and/or counseling patient: Coding Level of Care Code 09040 Initial Inpt Care Lvl 3 Diagnoses Diverticulitis of colon with perforation K57.20 Facial tingling R20.2 Numbness and tingling of both upper extremities R20.0; R20.2 Numbness and tingling of both lower extremities R20.0; R20.2 Hypertension I10 Depression with anxiety F41.8 Alcohol dependence, daily use F10.20 Lesion of lung R91.1
[2021-02-16] MEDS ORDERED: MoRPHine SULFATE 4 MG/ML 1 ML CARP\\VIAL IV PRN ×2 (22:28→23:01)
[2021-02-16] MEDS ORDERED: ACETAMINOPHEN 325 MG TAB PO PRN (23:01)
[2021-02-16] MEDS ORDERED: MoRPHine SULFATE 2 MG/ML CARP IV PRN (23:01)
[2021-02-16] MEDS ORDERED: hydrOXYzine HCl 25 MG TAB PO PRN (23:01)
[2021-02-16] MEDS ORDERED: LORazepam 1 MG/2 ML VIAL IV PRN (23:01)
[2021-02-16] MEDS ORDERED: ONDANSETRON INJ 2 MG/ML 2 ML VIAL IV PRN (23:01)
[2021-02-17] MEDS: THIAMINE HCL 100 MG TAB PO SCH ×2 (00:31→08:38)
[2021-02-17] MEDS: busPIRone 5 MG TAB PO SCH ×3 (00:31→20:27)
[2021-02-17] MEDS: PIPERACILLIN/TAZOBACTAM 4.5 GM in DEXTROSE 5% 100 ML IV SCH ×3 (00:31→17:12)
[2021-02-17] MEDS: LACTATED RINGER'S 1,000 ML IV SCH ×3 (00:31→17:09)
[2021-02-17] MEDS: ENOXAPARIN INJ 40 MG/0.4 ML SYR SQ SCH ×2 (00:31→20:27)
[2021-02-17] MEDS: FOLIC ACID 1 MG TAB PO SCH ×2 (00:31→08:38)
[2021-02-17] MEDS ORDERED: MELATONIN 3 MG TAB PO PRN (00:47)
[2021-02-17] MEDS: oxyCODONE HCL IR 5 MG TAB (IMMEDIATE RELEASE) PO PRN ×2 (01:09→08:43)
[2021-02-17 07:29] LABS: Basophils # (auto) 0.04 K/uL (0-0.2); Basophils % (auto) 0.3 %; Eosinophils # (auto) 0.09 K/uL (0-0.5); Eosinophils % (auto) 0.6 %; Hematocrit (blood only) 43.1 % (37-47); Hemoglobin 14.4 g/dL (12.0-16.0); Immature Granulocytes # (auto) 0.04 K/uL (0.00-0.02); Immature Granulocytes % (auto) 0.3 %; Lymphocytes # (auto) 1.87 K/uL (1.2-3.4); Lymphocytes % (auto) 12.9 %; Mean Corpuscular Hgb Conc 33.4 g/dL (32-36); Mean Corpuscular Volume 95.8 fL (80-100); Mean Platelet Volume 9.3 fL (7.4-10.4); Monocytes # (auto) 1.18 K/uL (0.11-0.59); Monocytes % (auto) 8.1 %; Neutrophils # (auto) 11.28 K/uL (1.4-6.5); Neutrophils % (auto) 77.8 %; Platelet Count 297 K/uL (130-400); RDW Coefficient of Variation 15.3 % (11.5-14.5); RDW Standard Deviation 53.3 fL (36.4-46.3)
[2021-02-17 07:52] LABS: Estimated Average Glucose 117 mg/dl; Hemoglobin A1C 5.7 % (4.5-5.6)
[2021-02-17 08:02] LABS: Albumin Level 3.2 gm/dl (3.4-5.0); BUN Creatinine Ratio 10.2 (10-20); Bilirubin Direct 0.4 mg/dl (0-0.2); Calcium 8.9 mg/dl (8.5-10.1); Creatinine Clr Calc Pharmacy 67.1 ml/min; Est GFR (African American) 63.9 ml/min; Est GFR (Non-African American) 55.1 ml/min; Potassium 3.7 mmol/L (3.5-5.1)
[2021-02-17 08:08] LABS: Bilirubin,Total 1.3 mg/dl (0.2-1); Total Protein 7.5 gm/dl (6.4-8.2)
--- NOTE | 2021-02-17 08:27 | Electrocardiogram Report ---
Test Reason : Blood Pressure : / mmHG Vent. Rate : 073 BPM Atrial Rate : 073 BPM P-R Int : 154 ms QRS Dur : 080 ms QT Int : 400 ms P-R-T Axes : 033 014 054 degrees QTc Int : 440 ms Poor data quality, interpretation may be adversely affected Normal sinus rhythm Normal ECG When compared with ECG of 13-JUL-2018 08:57, No significant change was found Confirmed by Jordin Jasmine ([id number]) on 02/17/2021 8:27:16 AM Referred By: REFERRED SELF Confirmed By:Jordin Jasmine
[2021-02-17] MEDS: FLUoxetine HCL 20 MG CAP PO SCH (08:38)
[2021-02-17] MEDS ORDERED: LORazepam 1 MG TAB PO PRN (08:38)
[2021-02-17] MEDS: METOPROLOL TARTRATE 25 MG TAB PO SCH ×2 (08:40→20:27)
--- NOTE | 2021-02-17 09:09 | CT Scan Report ---
CT chest diagnostic wo con INDICATION: MN ^DO IN AM PT SLEEPING ^evaluate RUL lesion. TECHNIQUE: Multidetector row helical CT of the chest was performed. Coronal and sagittal reformations were obtained. Automated dose lowering techniques and/or adjustment according to patient size were u tilized for this exam. Comparison: Comparison is made to CT thorax 07/13/2018 and CTA head and neck 02/16/2021 FINDINGS: Lungs and pleura: Dependent atelectasis is seen bilaterally. The previously noted 7 mm groundglass no dule is again seen (series 4 image 74). Compared to CT chest performed in 2019, the nodule is slightl y enlarged (previously measured 5 mm) and increased in density as well. There is a 5 mm groundglass n odule in the right upper lobe which is unchanged (image 66). There is a small surrounding focus of tr ee-in-bud nodularity which is unchanged from 2019. Heart and pericardium: Mild cardiomegaly with biatrial enlargement is seen. Vessels: The pulmonary trunk is enlarged measuring 33 mm. Mediastinum and bibi: Unremarkable. Chest wall and lower neck: Unremarkable. Abdomen: A hiatal hernia is seen. Bones: Degenerative changes in the thoracic spine. IMPRESSION: 1. Redemonstration of a 7 mm dense groundglass nodule in the right upper lobe which is slightly incr eased in size and density from 2019. These findings may represent a low-grade adenocarcinoma. Continu ed outpatient follow-up and referral to pulmonology is recommended. 2. Stable 5 mm right upper lobe groundglass nodule. Stable tree-in-bud nodularity in the right upper lobe which may reflect chronic infectious/pulmonary process. 3. Pulmonary hypertension. ACT 112: Negative or not required by law. Electronically signed by: Jose Rafael Browning M.D. 02/17/2021 9:08 AM
--- NOTE | 2021-02-17 09:50 | Surgery Progress Note ---
Date of Service February 17, 2021 Assessment & Plan (1) Diverticulitis: Plan: -Keep NPO today -WBC slightly lower -Monitor for any fevers -Continue Zosyn Admission and Anticipated Discharge Date Admission Date: February 16, 2021 Subjective Pt seen and examined. Her pain is improved from last night. Afebrile. No N/V. Review of Systems Constitutional: no fever and no chills Physical Exam Constitutional: WD/WN, vitals as above Respiratory: normal respiratory effort Cardiovascular: RRR, no murmur, no edema Gastrointestinal (Abdomen): Inspection/Auscultation: abdomen normal to inspection; abdomen not distended Percussion/Palpation: + abdomen tender (bilateral lower quadrants) and abdomen soft; no guarding, abdomen not rigid and no hernia Musculoskeletal: no cyanosis or clubbing, extremities motor strength 5/5 Skin: no rashes, warm and dry Psychiatric: A+Ox3, euthymic affect Results & Data ([facility]) Vital Signs (Past 12 Hours) Vital Signs Temp Pulse Pulse Resp BP BP Pulse Ox 02/17/21 08:40 87 119/75 02/17/21 07:56 85 02/17/21 07:12 37.3 C 81 18 98/62 L 91 02/17/21 05:00 37.4 C 100/59 L 02/17/21 03:00 37.8 C H 86 18 84/52 L 91 02/17/21 00:21 92 H 02/16/21 23:06 38.0 C H 92 H 16 139/85 93 PG Care Time/CCT Total # of Minutes Spent Total Time Spent with Patient: Total time spent is greater than 50% in coordination of care (as documented) at patient's floor/unit and/or counseling patient: Coding Level of Care Code 04642 Subseq Hosp Care Lvl 1 Diagnoses Diverticulitis K57.92
--- NOTE | 2021-02-17 13:58 | Hospitalist Progress Note ---
Date of Service February 17, 2021 Assessment & Plan (1) Diverticulitis of colon with perforation: Plan: 60yo female presenting with acute sigmoid diverticulitis with perforation. Perforation is contained. Patient is hemodynamically stable, non-toxic in appearance. General Surgery has been consulted and has evaluated the patient in the ER. No surgical intervention at this time. She did have a fever on the evening of admission, but none so far today Fortunately, leukocytosis is improving slightly today and abdominal pain is improving. -Continue IV Zosyn -Continue NPO except chips/sips -Monitor for progression of abdominal pain, distention or development of peritonitis -Oxycodone and IV morphine as needed for pain -Zofran as needed for nausea -Blood cultures were not drawn upon admission-not likely to be fruitful at this time but would draw blood cultures if fevers persist -No need for repeat imaging of the abdomen unless not improving or worsens -Appreciate general surgery consultation -She will need a colonoscopy in 6 weeks after resolution of diverticulitis (2) Facial tingling: Plan: Etiology unclear. Patient with stable meningioma re-imaged today-follows with neurosurgery at [place]. Nonfocal neurological exam. Possible anxiety contributing to tingling sensation vs developing neuropathy. ?DM, ?B12 deficiency, ?long-term effects of daily EtOH use Hemoglobin A1c improved from previous at 5.7% B12 level here is borderline low at 309 Will start B12 injections 1000 mcg IM once daily x3 while here Counseled on importance of alcohol cessation (3) Numbness and tingling of both upper extremities: Plan: Patient endorses paresthesias involving bilateral fingertips as well as feet and left side of mouth. Etiology unclear. Neurological exam is unremarkable as is CTA of the head and neck (stable chronic findings) ?DM, B12 deficiency, EtOH effects, anxiety? -Treatment as above with B12 injections, EtOH cessation -If not improving, recommend follow-up with EMG/NCS as outpatient (4) Numbness and tingling of both lower extremities: Plan: As above (5) Hypertension: Plan: Blood pressure well controlled to occasionally low likely secondary to acute infectious process -Continue home medication - Metoprolol 25mg po BID with hold parameters -Continue to monitor BP (6) Depression with anxiety: Plan: Patient feels anxious given current events and hospitalization -Continue home Buspirone 10mg po BID -Continue home Prozac 40mg daily -Trial of hydroxyzine 25mg po TID as needed for anxiety -Melatonin qHS as needed for insomnia -Add on lorazepam at bedtime for insomnia (7) Alcohol dependence, daily use: Plan: Patient reports drinking 6 drinks/day. No history of withdrawal symptoms -Thiamine 100mg po daily -Folic Acid 1mg po daily -AWSS at risk protocol with Ativan as needed. Do not anticipate withdrawal -Counseled on cessation (8) Lesion of lung: Plan: Incidental finding on CTA neck of a 1.4 x 0.7 ground glass RUL nodule. Indeterminant. - CT chest to further qualify lesion shows a 7 mm nodule in the right upper lobe which is increased in size and increased in density from previous CT scan 2 years ago. Discussed with patient about importance for outpatient follow-up with pulmonology and repeat imaging for this as it could be a low-grade adenocarcinoma given her history of smoking Advised smoking cessation Plan: DVT Ppx - Lovenox 40mg SQ once daily Code - DNR/DNI per discussion with patient Dispo -continued stay on medical with telemetry Admission and Anticipated Discharge Date Admission Date: February 16, 2021 Subjective Patient feels as her left lower quadrant abdominal pain is definitely improved today. She is also having some lower back pain she reports from sleeping on her back in this bed. She feels a little bit nauseated but thinks it is because she has not eaten in 2 days. She did a fever last evening She is still continuing to have paresthesias of the fingertips and toes and around her mouth. We discussed the results of her chest CT with lung nodule that needs to be followed. We also discussed the importance of smoking and alcohol cessation She reports she has never had any alcohol withdrawal symptoms in the past She does complain of insomnia and melatonin did not help her last night. Telemetry with normal sinus rhythm and PVCs with rates in the 80s to 90s. Review of Systems Review of Systems: All systems reviewed & are unremarkable except as noted in HPI & below Physical Exam Constitutional: WD/WN, vitals as above + obese Eyes: + anicteric sclerae Neck: trachea midline, no thyromegaly Respiratory: normal respiratory effort, lungs clear to auscultation Cardiovascular: RRR, no murmur, no edema Chest (Breasts): Chest: normal inspection of chest Gastrointestinal (Abdomen): Inspection/Auscultation: normal bowel sounds; abdomen not distended Percussion/Palpation: + abdomen tender (And LLQ without guarding or rebound) and abdomen soft Musculoskeletal: Extremities: extremities normal to inspection; no cyanosis and no clubbing Skin: no rashes, warm and dry Neurologic: moves all extremities and awake; no focal motor deficits Psychiatric: A+Ox3, euthymic affect Lymphatic: no lymphedema Results & Data Results & Data ([facility]) Vital Signs (Past 12 Hours) Vital Signs Temp Pulse Pulse Resp BP Pulse Ox 02/17/21 11:48 37.1 C 80 16 95/61 L 91 02/17/21 08:40 87 119/75 02/17/21 07:56 85 02/17/21 07:12 37.3 C 81 18 98/62 L 91 02/17/21 05:00 37.4 C 100/59 L 02/17/21 03:00 37.8 C H 86 18 84/52 L 91 Laboratory Results 02/17/21 02/17/21 02/17/21 Range/Units 20:23 07:02 07:02 WBC (4.8-10.8) K/uL RBC (4.2-5.4) M/uL Hgb (12.0-16.0) g/dL Hct (37-47) % MCV (80-100) fL MCH (25-34) pg MCHC (32-36) g/dL RDW Std Deviation (36.4-46.3) fL RDW Coeff of [place] (11.5-14.5) % Plt Count (130-400) K/uL MPV (7.4-10.4) fL Immature Gran % (Auto) % Neut % (Auto) % Lymph % (Auto) % [place] % (Auto) % Eos % (Auto) % Baso % (Auto) % Neut # (Auto) (1.4-6.5) K/uL Lymph # (Auto) (1.2-3.4) K/uL [place] # (Auto) (0.11-0.59) K/uL Eos # (Auto) (0-0.5) K/uL Baso # (Auto) (0-0.2) K/uL Immature Gran # (Auto) (0.00-0.02) K/uL Sodium (136-145) mmol/L Potassium (3.5-5.1) mmol/L Chloride (98-107) mmol/L Carbon Dioxide (21-32) mmol/L Anion Gap (3-11) BUN (7-18) mg/dl Creatinine (0.6-1.2) mg/dl Est Cr Clr Drug Dosing ml/min Est GFR ( Amer) ml/min Est GFR (Non-Af Amer) ml/min BUN/Creatinine Ratio (10-20) Glucose (70-99) mg/dl POC Glucose 105 H (70-99) mg/dl Estimat Average Glucose 117 mg/dl Hemoglobin A1c 5.7 H (4.5-5.6) % Calcium (8.5-10.1) mg/dl Total Bilirubin (0.2-1) mg/dl Direct Bilirubin (0-0.2) mg/dl AST (15-37) U/L ALT (12-78) U/L Alkaline Phosphatase (45-117) U/L Total Protein (6.4-8.2) gm/dl Albumin (3.4-5.0) gm/dl Vitamin B12 309 (193-986) pg/ml SARS-CoV-2 (PCR) (Negative) 02/17/21 02/17/21 02/16/21 Range/Units 07:02 07:02 20:30 WBC 14.50 H (4.8-10.8) K/uL RBC 4.50 (4.2-5.4) M/uL Hgb 14.4 (12.0-16.0) g/dL Hct 43.1 (37-47) % MCV 95.8 (80-100) fL MCH 32.0 (25-34) pg MCHC 33.4 (32-36) g/dL RDW Std Deviation 53.3 H (36.4-46.3) fL RDW Coeff of [place] 15.3 H (11.5-14.5) % Plt Count 297 (130-400) K/uL MPV 9.3 (7.4-10.4) fL Immature Gran % (Auto) 0.3 % Neut % (Auto) 77.8 % Lymph % (Auto) 12.9 % [place] % (Auto) 8.1 % Eos % (Auto) 0.6 % Baso % (Auto) 0.3 % Neut # (Auto) 11.28 H (1.4-6.5) K/uL Lymph # (Auto) 1.87 (1.2-3.4) K/uL [place] # (Auto) 1.18 H (0.11-0.59) K/uL Eos # (Auto) 0.09 (0-0.5) K/uL Baso # (Auto) 0.04 (0-0.2) K/uL Immature Gran # (Auto) 0.04 H (0.00-0.02) K/uL Sodium 133 L (136-145) mmol/L Potassium 3.7 (3.5-5.1) mmol/L Chloride 98 (98-107) mmol/L Carbon Dioxide 27 (21-32) mmol/L Anion Gap 8.0 (3-11) BUN 11 (7-18) mg/dl Creatinine 1.09 (0.6-1.2) mg/dl Est Cr Clr Drug Dosing 67.1 ml/min Est GFR ( Amer) 63.9 ml/min Est GFR (Non-Af Amer) 55.1 ml/min BUN/Creatinine Ratio 10.2 (10-20) Glucose 118 H (70-99) mg/dl POC Glucose (70-99) mg/dl Estimat Average Glucose mg/dl Hemoglobin A1c (4.5-5.6) % Calcium 8.9 (8.5-10.1) mg/dl Total Bilirubin 1.3 H D (0.2-1) mg/dl Direct Bilirubin 0.4 H (0-0.2) mg/dl AST 20 (15-37) U/L ALT 28 (12-78) U/L Alkaline Phosphatase 169 H (45-117) U/L Total Protein 7.5 (6.4-8.2) gm/dl Albumin 3.2 L (3.4-5.0) gm/dl Vitamin B12 (193-986) pg/ml SARS-CoV-2 (PCR) NEGATIVE (Negative) PG Care Time/CCT Total # of Minutes Spent Total Time Spent with Patient: Total time spent is greater than 50% in coordination of care (as documented) at patient's floor/unit and/or counseling patient: Coding Level of Care Code 87455 Subseq Hosp Care Lvl 3 Diagnoses Diverticulitis of colon with perforation K57.20 Facial tingling R20.2 Numbness and tingling of both upper extremities R20.0; R20.2 Numbness and tingling of both lower extremities R20.0; R20.2 Hypertension I10 Depression with anxiety F41.8 Alcohol dependence, daily use F10.20 Lesion of lung R91.1
[2021-02-17] MEDS ORDERED: LORazepam 0.5 MG TAB PO PRN (14:12)
[2021-02-18] MEDS: PIPERACILLIN/TAZOBACTAM 4.5 GM in DEXTROSE 5% 100 ML IV SCH ×3 (01:38→17:35)
[2021-02-18] MEDS: oxyCODONE HCL IR 5 MG TAB (IMMEDIATE RELEASE) PO PRN ×2 (01:45→20:56)
[2021-02-18] MEDS ORDERED: Nursing to Pharmacy Communication SCH (02:00)
[2021-02-18] MEDS: LACTATED RINGER'S 1,000 ML IV SCH ×3 (02:20→23:51)
[2021-02-18] MEDS: CYANOCOBALAMIN 1000 MCG/ML VIAL IM SCH (08:46)
[2021-02-18] MEDS: FOLIC ACID 1 MG TAB PO SCH (08:46)
[2021-02-18] MEDS: METOPROLOL TARTRATE 25 MG TAB PO SCH ×2 (08:46→20:10)
[2021-02-18] MEDS: busPIRone 5 MG TAB PO SCH ×2 (08:47→20:11)
[2021-02-18] MEDS: FLUoxetine HCL 20 MG CAP PO SCH (08:47)
[2021-02-18] MEDS: THIAMINE HCL 100 MG TAB PO SCH (08:47)
[2021-02-18 10:16] LABS: Basophils # (auto) 0.03 K/uL (0-0.2); Basophils % (auto) 0.3 %; Eosinophils # (auto) 0.14 K/uL (0-0.5); Eosinophils % (auto) 1.2 %; Hematocrit (blood only) 38.2 % (37-47); Immature Granulocytes # (auto) 0.04 K/uL (0.00-0.02); Immature Granulocytes % (auto) 0.4 %; Lymphocytes # (auto) 1.15 K/uL (1.2-3.4); Lymphocytes % (auto) 10.1 %; Mean Corpuscular Hemoglobin 31.9 pg (25-34); Mean Corpuscular Volume 93.9 fL (80-100); Mean Platelet Volume 8.9 fL (7.4-10.4); Monocytes # (auto) 1.06 K/uL (0.11-0.59); Monocytes % (auto) 9.3 %; Neutrophils # (auto) 8.98 K/uL (1.4-6.5); Neutrophils % (auto) 78.7 %; Platelet Count 210 K/uL (130-400); RDW Coefficient of Variation 14.9 % (11.5-14.5); RDW Standard Deviation 51.4 fL (36.4-46.3); Red Blood Count 4.07 M/uL (4.2-5.4)
[2021-02-18 10:51] LABS: Albumin Globulin Ratio 0.6 (0.9-2); Albumin Level 2.6 gm/dl (3.4-5.0); BUN Creatinine Ratio 13.4 (10-20); Bilirubin,Total 0.8 mg/dl (0.2-1); Calcium 8.5 mg/dl (8.5-10.1); Creatinine Clr Calc Pharmacy 109.1 ml/min; Est GFR (African American) 110.7 ml/min; Est GFR (Non-African American) 95.5 ml/min; Globulin 4.2 gm/dl (2.5-4.0); Magnesium 2.3 mg/dl (1.8-2.4); Potassium 3.5 mmol/L (3.5-5.1); Total Protein 6.8 gm/dl (6.4-8.2)
--- NOTE | 2021-02-18 10:51 | Surgery Progress Note ---
Date of Service February 18, 2021 Assessment & Plan (1) Diverticulitis: Plan: -Trial clears today -WBC trending down -Keep on Zosyn today -Repeat WBC tomorrow -Will follow Admission and Anticipated Discharge Date Admission Date: February 16, 2021 Subjective Pt seen and examined. Pain improved, but still there. Afebrile. No N/V. +flatus, no BM. Review of Systems Constitutional: no fever and no chills Physical Exam Constitutional: WD/WN, vitals as above Respiratory: normal respiratory effort Cardiovascular: RRR, no murmur, no edema Gastrointestinal (Abdomen): Inspection/Auscultation: abdomen normal to inspection; abdomen not distended Percussion/Palpation: + abdomen tender (bilateral lower quadrants, improved since yesterday) and abdomen soft; no guarding, abdomen not rigid and no hernia Musculoskeletal: no cyanosis or clubbing, extremities motor strength 5/5 Skin: no rashes, warm and dry Psychiatric: A+Ox3, euthymic affect Results & Data ([facility]) Vital Signs (Past 12 Hours) Vital Signs Temp Pulse Pulse Resp BP Pulse Ox 02/18/21 07:34 36.8 C 90 18 133/71 90 02/18/21 04:00 36.8 C 81 20 120/72 91 02/18/21 03:00 97 H 02/17/21 23:00 37.1 C 97 H 20 115/74 94 PG Care Time/CCT Total # of Minutes Spent Total Time Spent with Patient: Total time spent is greater than 50% in coordination of care (as documented) at patient's floor/unit and/or counseling patient: Coding Level of Care Code 21626 Subseq Hosp Care Lvl 1 Diagnoses Diverticulitis K57.92
[2021-02-18] MEDS: DICLOFENAC SOD 1% GEL 100 GM TUBE EXT SCH ×2 (18:27→20:10)
[2021-02-18] MEDS: ENOXAPARIN INJ 40 MG/0.4 ML SYR SQ SCH (20:11)
--- NOTE | 2021-02-18 23:05 | Hospitalist Progress Note ---
Date of Service February 18, 2021 Assessment & Plan (1) Diverticulitis of colon with perforation: Plan: 60yo female presenting with acute sigmoid diverticulitis with perforation. Perforation is contained. Patient is hemodynamically stable, non-toxic in appearance. General Surgery has been consulted and has evaluated the patient in the ER. No surgical intervention at this time. She did have a fever on the evening of admission, but none since then Fortunately, leukocytosis is continuing to improve, and abdominal pain is also improving. -Advance diet to clear liquids -Continue IV Zosyn -Monitor for progression of abdominal pain, distention or development of peritonitis -Oxycodone and IV morphine as needed for pain -Continue IV fluids until taking adequate p.o. -Zofran as needed for nausea -Blood cultures were not drawn upon admission-not likely to be fruitful at this time but would draw blood cultures if fevers persist -No need for repeat imaging of the abdomen unless not improving or worsens -Appreciate general surgery consultation -She will need a colonoscopy in 6 weeks after resolution of diverticulitis (2) Sepsis: Plan: Sepsis, in the setting of diverticulitis of colon with perforation Improved, plan as above (3) Facial tingling: Plan: Etiology unclear. Patient with stable meningioma re-imaged today-follows with neurosurgery at [place]. Nonfocal neurological exam. Possible anxiety contributing to tingling sensation vs developing neuropathy. ?DM, ?B12 deficiency, ?long-term effects of daily EtOH use Hemoglobin A1c improved from previous at 5.7% B12 level here is borderline low at 309 Will start B12 injections 1000 mcg IM once daily x3 while here Counseled on importance of alcohol cessation (4) Numbness and tingling of both upper extremities: Plan: Patient endorses paresthesias involving bilateral fingertips as well as feet and left side of mouth. Etiology unclear. Neurological exam is unremarkable as is CTA of the head and neck (stable chronic findings) ?DM, B12 deficiency, EtOH effects, anxiety? -Treatment as above with B12 injections, EtOH cessation -If not improving, recommend follow-up with EMG/NCS as outpatient (5) Numbness and tingling of both lower extremities: Plan: As above (6) Hypertension: Plan: Blood pressure well controlled to occasionally low likely secondary to acute infectious process -Continue home medication - Metoprolol 25mg po BID with hold parameters -Continue to monitor BP (7) Depression with anxiety: Plan: Patient feels anxious given current events and hospitalization -Continue home Buspirone 10mg po BID -Continue home Prozac 40mg daily -Trial of hydroxyzine 25mg po TID as needed for anxiety -Melatonin qHS as needed for insomnia -Added on lorazepam at bedtime for insomnia (8) Alcohol dependence, daily use: Plan: Patient reports drinking 6 drinks/day. No history of withdrawal symptoms -Thiamine 100mg po daily -Folic Acid 1mg po daily -AWSS at risk protocol with Ativan as needed. Do not anticipate withdrawal -Counseled on cessation (9) Elevated LFTs: Plan: with mildly elevated total bilirubin and alkaline phosphatase-most likely secondary to alcoholic liver disease/hepatitis Advised alcohol cessation Bilirubin improved and alkaline phosphatase still mildly elevated (10) Hyponatremia: Plan: sodium mildly low upon admission -likely secondary to acute illness and dehydration Now improved Continue IV fluids Follow BMP in the morning (11) Lesion of lung: Plan: Incidental finding on CTA neck of a 1.4 x 0.7 ground glass RUL nodule. Indeterminant. - CT chest to further qualify lesion shows a 7 mm nodule in the right upper lobe which is increased in size and increased in density from previous CT scan 2 years ago. Discussed with patient about importance for outpatient follow-up with pulmonology and repeat imaging for this as it could be a low-grade adenocarcinoma given her history of smoking Advised smoking cessation Plan: DVT Ppx - Lovenox 40mg SQ once daily Code - DNR/DNI per discussion with patient Dispo -continued stay but can downgrade to medical floor Admission and Anticipated Discharge Date Admission Date: February 16, 2021 Subjective Patient still having a lot of lower back pain from positioning in the bed. She does have some lower abdominal discomfort but it also is improved. Denies nausea and was advanced to clear liquids diet by surgery this morning. She ate everything on her tray for breakfast and feels well with this. Denies chest pains or shortness of breath. Telemetry with normal sinus rhythm with rates in the 80s to 90s Review of Systems Review of Systems: All systems reviewed & are unremarkable except as noted in HPI & below Physical Exam Constitutional: WD/WN, vitals as above + obese Eyes: + anicteric sclerae Neck: trachea midline, no thyromegaly Respiratory: normal respiratory effort, lungs clear to auscultation Cardiovascular: RRR, no murmur, no edema Chest (Breasts): Chest: normal inspection of chest Gastrointestinal (Abdomen): Inspection/Auscultation: normal bowel sounds; abdomen not distended Percussion/Palpation: + abdomen tender (And LLQ without guarding or rebound) and abdomen soft Musculoskeletal: Extremities: extremities normal to inspection; no cyanosis and no clubbing No tenderness to palpation over lower back, no masses Skin: no rashes, warm and dry Neurologic: moves all extremities and awake; no focal motor deficits Psychiatric: A+Ox3, euthymic affect Lymphatic: no lymphedema Results & Data Results & Data ([facility]) Vital Signs (Past 12 Hours) Vital Signs Temp Pulse Pulse Resp BP Pulse Ox 02/18/21 22:00 37.1 C 70 18 135/77 94 02/18/21 19:00 36.7 C 87 18 119/76 94 02/18/21 17:09 71 02/18/21 15:34 37.0 C 74 18 148/91 H 93 02/18/21 11:01 36.9 C 83 16 128/78 93 02/18/21 11:00 82 Laboratory Results 02/18/21 02/18/21 Range/Units 10:03 10:03 WBC 11.40 H (4.8-10.8) K/uL RBC 4.07 L (4.2-5.4) M/uL Hgb 13.0 (12.0-16.0) g/dL Hct 38.2 (37-47) % MCV 93.9 (80-100) fL MCH 31.9 (25-34) pg MCHC 34.0 (32-36) g/dL RDW Std Deviation 51.4 H (36.4-46.3) fL RDW Coeff of [place] 14.9 H (11.5-14.5) % Plt Count 210 (130-400) K/uL MPV 8.9 (7.4-10.4) fL Immature Gran % (Auto) 0.4 % Neut % (Auto) 78.7 % Lymph % (Auto) 10.1 % [place] % (Auto) 9.3 % Eos % (Auto) 1.2 % Baso % (Auto) 0.3 % Neut # (Auto) 8.98 H (1.4-6.5) K/uL Lymph # (Auto) 1.15 L (1.2-3.4) K/uL [place] # (Auto) 1.06 H (0.11-0.59) K/uL Eos # (Auto) 0.14 (0-0.5) K/uL Baso # (Auto) 0.03 (0-0.2) K/uL Immature Gran # (Auto) 0.04 H (0.00-0.02) K/uL Sodium 136 (136-145) mmol/L Potassium 3.5 (3.5-5.1) mmol/L Chloride 102 (98-107) mmol/L Carbon Dioxide 27 (21-32) mmol/L Anion Gap 7.0 (3-11) BUN 9 (7-18) mg/dl Creatinine 0.67 D (0.6-1.2) mg/dl Est Cr Clr Drug Dosing 109.1 ml/min Est GFR ( Amer) 110.7 ml/min Est GFR (Non-Af Amer) 95.5 ml/min BUN/Creatinine Ratio 13.4 (10-20) Glucose 103 H (70-99) mg/dl Calcium 8.5 (8.5-10.1) mg/dl Magnesium 2.3 (1.8-2.4) mg/dl Total Bilirubin 0.8 D (0.2-1) mg/dl AST 22 (15-37) U/L ALT 26 (12-78) U/L Alkaline Phosphatase 170 H (45-117) U/L Total Protein 6.8 (6.4-8.2) gm/dl Albumin 2.6 L (3.4-5.0) gm/dl Globulin 4.2 H (2.5-4.0) gm/dl Albumin/Globulin Ratio 0.6 L (0.9-2) PG Care Time/CCT Total # of Minutes Spent Total Time Spent with Patient: Total time spent is greater than 50% in coordination of care (as documented) at patient's floor/unit and/or counseling patient: Coding Level of Care Code 77798 Subseq Hosp Care Lvl 3 Diagnoses Diverticulitis of colon with perforation K57.20 Facial tingling R20.2 Numbness and tingling of both upper extremities R20.0; R20.2 Numbness and tingling of both lower extremities R20.0; R20.2 Hypertension I10 Depression with anxiety F41.8 Alcohol dependence, daily use F10.20 Lesion of lung R91.1 Elevated LFTs R79.89 Hyponatremia E87.1 Sepsis A41.9
[2021-02-19] MEDS: PIPERACILLIN/TAZOBACTAM 4.5 GM in DEXTROSE 5% 100 ML IV SCH ×2 (01:21→09:22)
[2021-02-19 08:01] LABS: Mean Corpuscular Hgb Conc 33.1 g/dL (32-36); Mean Platelet Volume 9.3 fL (7.4-10.4); Platelet Count 240 K/uL (130-400)
[2021-02-19] MEDS: busPIRone 5 MG TAB PO SCH (08:03)
[2021-02-19] MEDS: FOLIC ACID 1 MG TAB PO SCH (08:03)
[2021-02-19] MEDS: METOPROLOL TARTRATE 25 MG TAB PO SCH (08:03)
[2021-02-19] MEDS: THIAMINE HCL 100 MG TAB PO SCH (08:03)
[2021-02-19] MEDS: FLUoxetine HCL 20 MG CAP PO SCH (08:03)
[2021-02-19] MEDS: CYANOCOBALAMIN 1000 MCG/ML VIAL IM SCH (08:04)
[2021-02-19] MEDS: DICLOFENAC SOD 1% GEL 100 GM TUBE EXT SCH ×3 (08:04→17:11)
[2021-02-19 08:24] LABS: Calcium 8.7 mg/dl (8.5-10.1); Creatinine Clr Calc Pharmacy 101.5 ml/min; Est GFR (African American) 105.5 ml/min; Magnesium 2.3 mg/dl (1.8-2.4); Potassium 3.8 mmol/L (3.5-5.1)
[2021-02-19 08:25] LABS: Phosphorus 2.9 mg/dl (2.5-4.9)
[2021-02-19 08:49] LABS: Basophils # (auto) 0.04 K/uL (0-0.2); Basophils % (auto) 0.4 %; Eosinophils # (auto) 0.19 K/uL (0-0.5); Eosinophils % (auto) 2.1 %; Hematocrit (blood only) 38.7 % (37-47); Hemoglobin 12.8 g/dL (12.0-16.0); Immature Granulocytes # (auto) 0.02 K/uL (0.00-0.02); Immature Granulocytes % (auto) 0.2 %; Lymphocytes # (auto) 1.57 K/uL (1.2-3.4); Lymphocytes % (auto) 17.3 %; Mean Corpuscular Hemoglobin 31.9 pg (25-34); Mean Corpuscular Volume 96.5 fL (80-100); Monocytes # (auto) 0.87 K/uL (0.11-0.59); Monocytes % (auto) 9.6 %; Neutrophils # (auto) 6.39 K/uL (1.4-6.5); Neutrophils % (auto) 70.4 %; RDW Coefficient of Variation 14.8 % (11.5-14.5); RDW Standard Deviation 52.9 fL (36.4-46.3); Red Blood Count 4.01 M/uL (4.2-5.4); White Blood Count 9.08 K/uL (4.8-10.8)
[2021-02-19] MEDS: LACTATED RINGER'S 1,000 ML IV SCH (09:23)
--- NOTE | 2021-02-19 09:46 | Surgery Progress Note ---
Date of Service February 19, 2021 Assessment & Plan (1) Diverticulitis: Plan: -Advance to low fiber diet, pain continues to improve -Her leukocytosis has resolved -If tolerates diet she could be discharged later today or tomorrow -Should follow up with GI as outpatient for colonoscopy in 6-8 weeks -She should have a full 14 day course of Augmentin after discharge Admission and Anticipated Discharge Date Admission Date: February 16, 2021 Subjective Pt seen and examined. Pain still improving. Afebrile. Tolerated clears. Had a BM. Review of Systems Constitutional: no fever and no chills Physical Exam Constitutional: WD/WN, vitals as above Respiratory: normal respiratory effort Cardiovascular: RRR, no murmur, no edema Gastrointestinal (Abdomen): Inspection/Auscultation: abdomen normal to inspection; abdomen not distended Percussion/Palpation: + abdomen tender (bilateral lower quadrants, improved since yesterday) and abdomen soft; no guarding, abdomen not rigid and no hernia Musculoskeletal: no cyanosis or clubbing, extremities motor strength 5/5 Skin: no rashes, warm and dry Psychiatric: A+Ox3, euthymic affect Results & Data ([facility]) Vital Signs (Past 12 Hours) Vital Signs Temp Pulse Resp BP Pulse Ox 02/19/21 08:00 36.9 C 76 18 123/71 92 02/18/21 22:00 37.1 C 70 18 135/77 94 PG Care Time/CCT Total # of Minutes Spent Total Time Spent with Patient: Total time spent is greater than 50% in coordination of care (as documented) at patient's floor/unit and/or counseling patient: Coding Level of Care Code 59865 Subseq Hosp Care Lvl 1 Diagnoses Diverticulitis K57.92
[2021-02-19] MEDS ORDERED: AMOXICILLIN/CLAVULANATE 875 MG TAB PO SCH (17:00)
--- NOTE | 2021-02-19 18:12 | Discharge Summary ---
Date of Service February 19, 2021 Admission HPI Per Admitting Provider Pat Barrera is a 60yo female presenting with abdominal pain. Patient had acute onset of LLQ abdominal pain beginning last evening. Pain is cramping in nature, 6/10 in severity. She denies fever but has been having some chills. She denies abdominal bloating, nausea/vomiting/diarrhea. She had a normal bowel movement today without blood. No oral intake today. Additionally she is complaining of perioral numbness for the last 2-3 days and numbness and tingling of her hands and feet for the last two weeks. She feels that muscular strength and balance are intact. She has been feeling more anxious than usual lately. Drinks 6 alcoholic beverages/day. Last drink was last evening. No history of withdrawal symptoms, DTs or seizures. ER Course: Magi Aguilar Principal Diagnosis Acute diverticulitis with perforation Discharge Exam Constitutional WD/WN, vitals as above + obese Eyes + anicteric sclerae Neck trachea midline, no thyromegaly Respiratory normal respiratory effort, lungs clear to auscultation Cardiovascular RRR, no murmur, no edema Chest (Breasts) Chest: normal inspection of chest Gastrointestinal (Abdomen) Inspection/Auscultation: normal bowel sounds; abdomen not distended Percussion/Palpation: abdomen soft; abdomen nontender Musculoskeletal Extremities: extremities normal to inspection; no cyanosis and no clubbing Skin no rashes, warm and dry Neurologic moves all extremities and awake; no focal motor deficits Psychiatric A+Ox3, euthymic affect Lymphatic no lymphedema Discharge Data Allergies Allergy/AdvReac Type Severity Reaction Status Date / Time No Known Allergies Allergy Verified 02/16/21 18:34 Consultations 02/16/21 20:55 ED Decision to Admit Stat Ordered Studies 02/16/21 18:36 CT abd pelvis IV con only Stat CT angio head wo/w Stat CT angio neck with con Stat 02/16/21 21:58 CT chest diagnostic wo con Routine Hospital Course (1) Diverticulitis of colon with perforation: 60yo female presenting with acute sigmoid diverticulitis with perforation. Perforation is contained. Patient is hemodynamically stable, non-toxic in appearance. General Surgery has been consulted and has evaluated the patient in the ER. No surgical intervention at this time. She did have a fever on the evening of admission, but none since then Fortunately, leukocytosis is resolved and abdominal pain is also significantly improved -tolerating low fiber diet at time of discharge -received IV Zosyn x 3 days and dc to home on Augmentin x 11 more days -Appreciate general surgery consultation-no intervention needed -She will need a colonoscopy in 6-8 weeks after resolution of diverticulitis -advised low fiber diet x 2 weeks, then gradual increase to high fiber diet to prevent future episodes of diverticulitis (2) Sepsis: Sepsis, in the setting of diverticulitis of colon with perforation Improved, plan as above (3) Facial tingling: Etiology unclear. Patient with stable meningioma re-imaged here-follows with neurosurgery at [place]. Nonfocal neurological exam. Possible anxiety contributing to tingling sensation vs developing neuropathy. ?DM, ?B12 deficiency, ?long-term effects of daily EtOH use Hemoglobin A1c improved from previous at 5.7% B12 level here is borderline low at 309 Was given B12 injections 1000 mcg IM once daily x2 while here and will continue B12 1000mcg po daily on discharge Counseled on importance of alcohol cessation (4) Numbness and tingling of both upper extremities: Patient endorses paresthesias involving bilateral fingertips as well as feet and left side of mouth. Etiology unclear. Neurological exam is unremarkable as is CTA of the head and neck (stable chronic findings) ?DM, B12 deficiency, EtOH effects, anxiety? -Treatment as above with B12 injections, EtOH cessation -If not improving, recommend follow-up with EMG/NCS as outpatient (5) Numbness and tingling of both lower extremities: As above (6) Hypertension: Blood pressure well controlled to occasionally low likely secondary to acute infectious process -Continue home medication - Metoprolol 25mg po BID with hold parameters (7) Depression with anxiety: Patient feels anxious given current events and hospitalization -Continue home Buspirone 10mg po BID -Continue home Prozac 40mg daily -she wants to quit drinking EtOH but has big concern about insomnia-trial of trazodone discussed on discharge prescribed--> f/u with PCP (8) Alcohol dependence, daily use: Patient reports drinking 6 drinks/day. No history of withdrawal symptoms -Thiamine 100mg po daily -Folic Acid 1mg po daily -Counseled on cessation (9) Elevated LFTs: with mildly elevated total bilirubin and alkaline phosphatase-most likely secondary to alcoholic liver disease/hepatitis Advised alcohol cessation Bilirubin improved and alkaline phosphatase still mildly elevated (10) Hyponatremia: sodium mildly low upon admission -likely secondary to acute illness and dehydration Now resolved with IVFs (11) Lesion of lung: Incidental finding on CTA neck of a 1.4 x 0.7 ground glass RUL nodule. Indeterminant. - CT chest to further qualify lesion shows a 7 mm nodule in the right upper lobe which is increased in size and increased in density from previous CT scan 2 years ago. Discussed with patient about importance for outpatient follow-up with pulmonology and repeat imaging for this as it could be a low-grade adenocarcinoma given her history of smoking Advised smoking cessation DVT Ppx - Lovenox 40mg SQ once daily Code - DNR/DNI per discussion with patient Dispo -dc to home, much improved Total Time Total Time Spent Total Time Spent (In Minutes): 35 min Discharge Plan Discharge Items Patient Disposition: Home - Self-Care Reason For Visit: ABDOMINAL PAIN Discharge Diagnosis: Acute diverticulitis with perforation Condition on Discharge: Good Activity: As commented below Lifting: Gradually increase as tolerated Bathing: No limitations Exercise/Sports: Gradually increase as tolerated Non-emergency contact: Primary Care Provider and [employer] Call non-emergency contact if: you have any medication questions, your symptoms worsen, your pain is not controlled, your pain is worsening, your pain is unusual for you, your pain is concerning for you, you have a fever and your temperature is above 101 Follow-up/Referrals: Mel Fuentes MD [Physician] - (Please call to schedule an appointment with the Manufacturing Business Analyst for your lung nodule.) Yovani Starkey, [Primary Care Provider] - (Please follow up within 1-2 weeks.) Diet: Heart Healthy and Low Fiber Diet Comment: Low fiber x 2 weeks, then gradually add fiber back in Addtl Attending Provider Instructions: Please finish out the course of antibiotics for the next 11 days for your diverticulitis. You will need a colonoscopy in 6-8 weeks in follow up. You were found to have a lung nodule that is bigger than on a previous scan. Please follow up with the Manufacturing Business Analyst for further evaluation of this. It is ve ry important that you continue to not smoke anymore. It is also very important to quit drinking all alcohol. If you need help sleeping, you can take trazadone. Continue taking B12, thiamine, and folic acid to replenish your vitamins to help your numbness/tingling go away. Your B12 levels were low. Follow up with Dr. Strakey within 1 week. Pending Studies at Discharge: No Stand-Alone Forms: My [facility], Smoking Cessation Medications and DC Order Prescriptions: New amoxicillin-pot clavulanate [Augmentin] 875-125 mg Tablet 1 tab PO BIDM Qty: 22 RF: 0 folic acid 1 mg Tablet 1 mg PO QAM Qty: 30 RF: 0 thiamine HCl (vitamin B1) [Vitamin B-1] 100 mg Tablet 100 mg PO QAM Qty: 30 RF: 0 cyanocobalamin (vitamin B-12) 1,000 mcg capsule 1,000 mcg PO DAILY Qty: 30 RF: 0 trazodone 50 mg tablet 50 mg PO HS PRN (Reason: insomnia) Qty: 30 RF: 0 Continued metoprolol tartrate 50 mg tablet 25 mg PO BID Qty: 90 RF: 3 buspirone 10 mg tablet 10 mg PO BID Qty: 180 RF: 3 fluoxetine 20 mg capsule 40 mg PO DAILY Qty: 60 RF: 6 cholecalciferol (vitamin D3) 2,000 unit capsule 2,000 units PO DAILY RF: 0 Discharge Orders: Discharge Order (Routine); Ordered 02/19/21 Ordered By: Angelica Drake/Other Patient Handouts: Low-Fiber Diet Admission Data Admit Date/Time: 02/16/21 21:58 Attending Provider: Angelica Waldron Admit Provider: Lindsey Ennis Primary Care Provider: Yovani Starkey Other Providers: Lindsey Ennis Coding Level of Care Code D/C DAY MANAGEMENT >30 MINS Diagnoses Diverticulitis of colon with perforation K57.20 Sepsis A41.9 Facial tingling R20.2 Numbness and tingling of both upper extremities R20.0; R20.2 Numbness and tingling of both lower extremities R20.0; R20.2 Hypertension I10 Depression with anxiety F41.8 Alcohol dependence, daily use F10.20 Elevated LFTs R79.89 Hyponatremia E87.1 Lesion of lung R91.1
== END 2021-02-19 18:42 | disposition home or self-care (01) | DRG 872 ==
LOC: ED 16:01 → 2N 21:58 → SUATTDRO 21:58 → 2N 22:38

== ENCOUNTER 2022-12-26 05:47 | Observation (INO) ==
--- NOTE | 2022-11-28 16:00 | PAT Medication Instructions ---
Medication Instructions Date of Service November 28, 2022 Home Medications Medication Instructions Recorded buspirone 10 mg tablet 10 mg PO TID #270 tabs 05/02/22 meloxicam 7.5 mg tablet 7.5 mg PO DAILY PRN knee pain #30 10/14/22 tabs buspirone 10 mg tablet 10 mg PO TID meloxicam 7.5 mg tablet 7.5 mg PO DAILY PRN fluoxetine 20 mg capsule 40 mg PO QAM metoprolol tartrate 50 mg tablet 25 mg PO QAM omeprazole 40 mg capsule,delayed release 40 mg PO DAILY PRN ondansetron 4 mg disintegrating tablet 4 mg PO Q6H PRN Continue as directed omeprazole 40 mg capsule,delayed release 40 mg PO DAILY PRN(if needed) ASK your surgeon for instructions meloxicam 7.5 mg tablet 7.5 mg PO DAILY PRN Take morning of surgery With a small sip of water, OTHERWISE NOTHING TO EAT OR DRINK AFTER MIDNIGHT: buspirone 10 mg tablet 10 mg PO TID fluoxetine 20 mg capsule 40 mg PO QAM metoprolol tartrate 50 mg tablet 25 mg PO QAM ondansetron 4 mg disintegrating tablet 4 mg PO Q6H PRN(if needed) Take evening before surgery buspirone 10 mg tablet 10 mg PO TID ondansetron 4 mg disintegrating tablet 4 mg PO Q6H PRN(if needed) Other Notes If you have any questions please call us at [phone] or [phone] or [phone] or [phone]
--- NOTE | 2022-12-07 12:55 | Anesthesiology Consultation ---
Date of Service December 07, 2022 Assessment & Plan (1) Encounter for pre-operative examination: - neurosurgery 05/30/22: "...underwent uncomplicated gamma knife radiosurgery...02/24/2022...presents with a repeat MRI from 05/24/2022 that demonstrates stability of this treated lesions [sic]...no signs of radiation treatment effect in the surrounding brain tissue...repeat MRI in 1 year..." - Outpatient joint assessment: Patient is currently scheduled for inpatient pathway. If re-evaluated pending system levels during current pandemic/surgeon requests outpatient pathway, patient is acceptable candidate for outpatient joint program from anesthesia standpoint pending surgeon's office assessment of pt motivation/support/completion of same day joint program preop requirements. Chart Review Chart Review: Acceptable Risk for Surgery and Patient seen in Pre Admission Testing Teaching & Discussion Pre-Anesthesia Teaching/Discussion Notes: Instructed NPO after midnight before surgery, except medications with 15 cc of water. Medication instructions provided according to the PAT guidelines. History Surgery Operation Date: 12/26/22 09:35 Proposed Procedures p Left Total Knee Arthroplasty - Yovani Aparicio, Height/Weight Height: 5 ft 5 in Weight: 108.1 kg Allergies Allergy/AdvReac Type Severity Reaction Status Date / Time amoxicillin [From Augmentin] AdvReac Intermediate Nausea Verified 11/23/22 15:15 clavulanic acid AdvReac Intermediate Nausea Verified 11/23/22 15:15 [From Augmentin] simvastatin [From Zocor] AdvReac Intermediate MYALGIA Verified 11/23/22 15:15 Medications Home Medications Medication Instructions Recorded Confirmed Last Taken buspirone 10 mg tablet 10 mg PO TID #270 tabs 05/02/22 11/23/22 07/05/22 meloxicam 7.5 mg tablet 7.5 mg PO DAILY PRN knee pain #30 10/14/22 11/23/22 Unknown tabs fluoxetine 20 mg capsule 40 mg PO QAM 11/23/22 11/23/22 Unknown metoprolol tartrate 50 mg tablet 25 mg PO QAM 11/23/22 11/23/22 Unknown omeprazole 40 mg capsule,delayed 40 mg PO DAILY PRN gerd 11/23/22 11/23/22 Unknown release ondansetron 4 mg disintegrating 4 mg PO Q6H PRN Nausea And Vomiting 11/23/22 11/23/22 Unknown tablet Past Medical History Medical History Acid reflux Back pain Depression with anxiety Diverticulitis of colon with perforation Hyperlipidemia Hypertension Legal blindness Meningioma Prediabetes Pulmonary nodule Patient denies h/o stroke, seizures, heart attack, heart failure, or blood transfusions. Exercise / Class Metabolic Activity II 4-5 Yardwork/Stairs/Walk up hill (shortness of breath with 1 FOS ongoing x several yrs, denies change or worsening; denies chest discomfort) Past Family History Family History Father Bladder cancer Myocardial infarction Grandmother (Maternal) Breast cancer Mother Rheumatic fever Other Diabetes Hypertension Lung disease Ovarian cancer Denies family history of Prostate cancer Colorectal cancer Past Surgical History Surgical History History of dilatation and curettage History of left knee surgery Hx of cholecystectomy Hx of colonoscopy Hx of hysterectomy Hx of tonsillectomy Past Anesthesia History No Hx of Anesthesia Complications and No Family Hx of Anesthesia Complications History of PONV No Hx of PONV and No Hx of Motion Sickness Social History Smoking Status: Current every day smoker (-advised) tobacco type: cigarettes Smoking cigarettes per day: 20 Do You Dip or Chew Tobacco: No Hx Alcohol Use: No (hx-none for a long time) Alcohol type: beer alcohol intake frequency: 3 or more drinks per day Hx Substance Use: No substance use type: does not use Review of Systems Snoring, denies witnessed apneas. Patient denies chest pain, fever, chills, wheezing, or palpitations. Physical Exam Vital Signs Vitals BP 136/90 P 67 TEMP 98.9 SP02 95% on RA RESP 17 Physical Full cervical extension range of motion without pain TMD < 3 finger breadths Mallampati Score 3 Dentition: intact, denies chipped or loose teeth, caps/crowns, implants or bridges Lungs: normal respiratory effort. Good air movement, clear throughout to auscultation, no adventitious breath sounds Cardiac: regular rate and rhythm, no murmurs noted Carotid arteries: negative bruit bilat Lab Results Anesthesia Preop Results Results Anesthesia Widget: WBC 7.81 K/ul (4.8-10.8) 12/07/22 Hgb 13.6 g/dl (12.0-16.0) 12/07/22 Hct 39.7 % (37.0-47.0) 12/07/22 Plt 264 K/uL (130-400) 12/07/22 Na 135 mmol/L (136-145) L 12/07/22 K 3.9 mmol/L (3.5-5.1) 12/07/22 Cl 105 mmol/L (98-107) 12/07/22 CO2 25 mmol/L (21-32) 12/07/22 BUN 12 mg/dl (6-23) 12/07/22 Creat 0.73 mg/dl (0.6-1.2) 12/07/22 Glucose Level 157 mg/dl (70-99(Fasting)) H 12/07/22 PT 10.6 Seconds (9.0-12.0) 12/07/22 PTT 25.7 Seconds (21.0-31.0) 12/07/22 INR 1.0 (0.9-1.1) 12/07/22 SARS-CoV-2, RNA, NAAT Negative 10/28/22 Blood Type A Negative 12/07/22 Antibody Screen NEGATIVE 12/07/22 Testing Electrocardiogram Date: 12/07/22 NSR, rate 68 bpm Chest X-Ray Date: 12/07/22 No significant change compared to the prior study. No acute process. Echocardiogram Date: 07/13/18 EF >70% No regional wall motion abnormalities Mild LVH Type 1 diastolic dysfunction No significant valvular abnormalities visualized, however valves were not well seen Other Testing Abdomen pelvis CT 07/06/22 Acute diverticulitis of the distal descending colon. No free air or abscess. Mild inflammation. Head CT 03/02/22 1. No acute intracranial findings. 2. No significant change in a 1.4 cm meningioma abutting the right aspect of the clivus at the level of the medulla since prior CT of February 16, 2021. Neck CTA 02/16/21 1. No stenosis or dissection within the major vessels of the neck. 2. 1.4 x 0.7 cm groundglass right upper lobe nodule. This is indeterminate and a small neoplasm cannot be excluded. A nonemergent chest CT is recommended. Head CTA 9/21/21 1. No acute intracranial findings. 2. No central vessel occlusion. No intracranial aneurysm. 3. No change in a 1.3 cm meningioma abutting the right aspect of the clivus at the level of the medulla since MRI of May 04, 2020 COVID-19 Risk Screen Screening Information COVID-19 Screen Date: 12/07/22 Exposure 21 Days Family/Household +COVID Last 21 Days: No Exposure 10 Days Any COVID Exposure Last 10 Days: No Symptoms Last 10 Days Experienced COVID Sx Last 10 Days: No + COVID 0-90 Days COVID + in Last 0-90 Days: No
[2022-12-26] MEDS ORDERED: ACETAMINOPHEN 500 MG TAB PO SCH (06:00)
[2022-12-26] MEDS ORDERED: GABAPENTIN 600 MG DOSE PO SCH (06:00)
[2022-12-26] MEDS ORDERED: ORTHO JOINT MIX INFIL SCH (06:00)
[2022-12-26] MEDS ORDERED: LR 500ML BOLUS, THEN 15ML/HR IV SCH (06:00)
[2022-12-26] MEDS ORDERED: FAMOTIDINE 20 MG TAB PO SCH (06:00)
[2022-12-26] MEDS ORDERED: TRANEXAMIC ACID 1,000 MG **IV Intra-op IV SCH (06:00)
[2022-12-26] MEDS ORDERED: ceFAZolin 2000MG 2,000 MG/15 ML SYR IV SCH (06:00)
[2022-12-26] MEDS ORDERED: dexAMETHasone 4 MG TAB PO SCH (06:00)
[2022-12-26] MEDS ORDERED: LR 60ML/HR IV SCH (06:00)
[2022-12-26] MEDS ORDERED: TRANEXAMIC ACID 1,000 MG **IV Pre-op IV SCH (06:00)
[2022-12-26] MEDS ORDERED: BUPIVACAINE 0.5 % 5 MG/1 ML PF 10ML VIAL ONE (06:20)
[2022-12-26] MEDS ORDERED: ROPIVACAINE 0.5% 5 MG/ML 30 ML VIAL ONE (06:20)
--- NOTE | 2022-12-26 06:45 | History & Physical Bridge Note ---
Date of Service December 26, 2022 History & Physical Bridge Note I have examined the patient, reviewed the History & Physical and in the interval since the performance of the History & Physical I have noted the following changes of clinical significance: no changes noted
[2022-12-26] MEDS ORDERED: ORTHO JOINT ANESTHETIC ONE (06:55)
[2022-12-26] MEDS ORDERED: MIDAZOLAM HCL 1 MG/ML 2ML VIAL ONE ×2 (06:56)
[2022-12-26] MEDS ORDERED: fentaNYL citrate PF 100 MCG/2 ML VIAL ONE (06:57)
[2022-12-26] MEDS ORDERED: PROPOFOL IV EMULSION 10 MG/ML 20 ML VIAL IV ONE (06:58)
[2022-12-26] MEDS ORDERED: LIDOCAINE 2% 2 ML VIAL/AMP(20MG/ML) INFIL ONE (06:58)
[2022-12-26] MEDS ORDERED: ONDANSETRON INJ 2 MG/ML 2 ML VIAL IV PRN ×2 (07:21→10:57)
[2022-12-26] MEDS ORDERED: ePHEDrine sulfate 50 MG/ML AMP IV PRN (07:21)
[2022-12-26] MEDS ORDERED: MoRPHine SULFATE 10 MG/ML CARP/VIAL IV PRN (07:21)
[2022-12-26] MEDS ORDERED: ATROPINE SULFATE 0.1 MG/ML 10ML SYR IV PRN (07:21)
[2022-12-26] MEDS ORDERED: MEPERIDINE HCL 25 MG/ML CARP/VIAL IV PRN (07:21)
[2022-12-26] MEDS ORDERED: fentaNYL citrate PF 100 MCG/2 ML VIAL IV PRN (07:21)
[2022-12-26] MEDS ORDERED: ONDANSETRON INJ 2 MG/ML 2 ML VIAL ONE (09:05)
--- NOTE | 2022-12-26 09:10 | Operative Report ---
PG Post Operative Report Pre & Post Diagnosis Operation Date: 12/26/22 07:55 Pre-Op Diagnosis: Osteoarthritis of Left Knee Post-Op Diagnosis: Osteoarthritis of Left Knee I identified the patient and participated in the time-out.: Yes Procedure Operation Date: 12/26/22 07:55 Actual Procedures p Left Total Knee Arthroplasty(Left) - Yovani Aparicio DO Surgeon Yovani Aparicio DO Clarity Developer Yovani Fitzgerald PA-C Estimated Blood Loss 30 Findings Consistent with Post-Op Diagnosis Specimens Left femoral tibial bone Description of Procedure Implants used: I used a Grace Persona total knee arthroplasty system with a size 5 standard femur, D tibia, 28 oval patella, and a size 11 medial congruent polyethylene bearing. All components were cemented in place with Biomet cement. Pat arrived [facility] for the above procedure. She was seen in the preoperative holding area and the operative extremity was identified and signed. She was given a preoperative antibiotic, TXA, a spinal anesthetic and an adductor nerve block. She was taken back to the operating room and laid on the table in supine position. She was given basic sedation. The operative knee was then prepped and draped in sterile fashion. A timeout was done, and the patient and the operative extremity was properly identified. A midline incision was made directly over the patella. Dissection was taken down to the extensor mechanism. A midvastus arthrotomy was used. The medial retinaculum was released and the fat pad was mostly excised. The knee was flexed and the ACL, PCL, and meniscus were removed. A drill was sent down the center of the femoral canal followed by an intramedullary desi. Off that desi a distal femoral cutting block was placed. 9 mm was resected off the distal femur at 5 of valgus. A posterior referencing AP sizing guide was then placed on the distal femur. The femur measured to be a size 5. 2 drill holes were placed in 3 of external rotation. A 4-in-1 cutting block was then impacted into place. Anterior, posterior, and chamfer cuts were then made. The proximal tibia was then exposed. An external tibial alignment guide was placed. A tibial cut guide was then anchored in place and the proximal tibia was then resected. The posterior aspect of the knee was then opened up and any additional meniscus fragments and osteophytes were removed. The tibia measured to be a size D. The tibial plate was then placed in the appropriate rotation and the tibia was drilled and punched. Trial components were then placed. I used a size 11 medial congruent polyethylene insert. The knee was brought through a full range of motion and felt to be stable. The peg holes for the femoral component were then drilled. The patella was then everted and 9 mm was resected off the posterior aspect of the patella. The patella measured to be a size 28 oval. 3 peg holes were then drilled. A trial patella was placed. The knee was once again brought through a full range of motion and felt to be stable. Trial components were then removed. The surrounding soft tissues were injected with 100 cc of an orthopedic pain control cocktail. All components were then cemented into place with Biomet cement. The final polyethylene insert was then snapped into place. Once cement was dry the tourniquet was deflated. Hemostasis was obtained. A dilute betadyne lavage was then done for 3 minutes. The joint was then irrigated with normal saline solution. The midvastus arthrotomy was then closed with #1 Vicryl suture. The skin was closed with 2-0 Vicryl, 3-0V lock suture, and latrell. A soft compressive dressing was placed. She was then transferred to a hospital bed and taken to the postanesthesia care unit in stable condition. She tolerated the procedure well. Yovani Fitzgerald PA-C, was present for the entire procedure. He was critical for patient positioning, prepping, draping, retraction exposure, wound closure and application of sterile dressing. I attest to the content of the Intraoperative Record and any orders documented therein. Any exceptions are noted below.
--- NOTE | 2022-12-26 10:23 | Anesthesiology Progress Note ---
Date of Service December 26, 2022 Anesthesia Post Procedure Vital Signs Vital Signs: Temp Pulse Pulse Resp BP Pulse Ox O2 Del Method 12/26/22 10:15 58 L 15 103/66 96 Nasal Cannula 12/26/22 10:05 61 18 114/61 94 Nasal Cannula 12/26/22 09:55 60 14 105/65 96 Oxymask 12/26/22 09:45 64 18 90/66 L 96 Oxymask 12/26/22 09:35 65 16 105/65 97 Oxymask 12/26/22 09:25 36.8 C 65 16 103/57 L 98 Oxymask 12/26/22 06:08 36.9 C 65 18 127/72 96 Room Air O2 Flow Rate 12/26/22 10:15 2 12/26/22 10:05 2 12/26/22 09:55 4 12/26/22 09:45 4 12/26/22 09:35 6 12/26/22 09:25 8 12/26/22 06:08 Pain Intensity Right Knee: Pain Intensity: 2 Left Knee: Pain Intensity: 0 Notes Mental Status: alert / awake / arousable Patient Amnestic to Procedure: Yes Nausea / Vomiting: adequately controlled Pain: adequately controlled Airway Patency, RR, SpO2: stable & adequate BP & HR: stable & adequate Hydration State: stable & adequate Neuraxial Anesthesia: was administered and sensory block is resolving Anesthetic Complications: no major complications apparent
[2022-12-26] MEDS ORDERED: bisacodyL 10 MG SUPP PR PRN (10:57)
[2022-12-26] MEDS ORDERED: METOCLOPRAMIDE HCL INJ 5 MG/ML 2 ML VIAL IV PRN (10:57)
[2022-12-26] MEDS ORDERED: MAGNESIUM HYDROXIDE SUSP 30 ML UDC PO PRN (10:57)
[2022-12-26] MEDS ORDERED: HYDROmorphone INJ 0.5 MG/0.5 ML SYR IV PRN (10:57)
[2022-12-26] MEDS ORDERED: ONDANSETRON 4 MG OD TAB PO PRN (10:57)
[2022-12-26] MEDS ORDERED: NALOXONE HCL 0.4 MG/1 ML VIAL/CARP IV PRN (10:57)
[2022-12-26] MEDS ORDERED: PANTOprazole 40 MG TAB PO PRN (11:00)
[2022-12-26] MEDS: SODIUM CHLORIDE 0.9% 1000ML 1,000 ML IV SCH ×2 (11:17→21:05)
--- NOTE | 2022-12-26 11:52 | XRay Report ---
XR knee LT 1 or 2V routine CLINICAL HISTORY: Postoperative evaluation. COMPARISON: Knee radiographs September 08, 2022. MRI of the left knee October 04, 2022. FINDINGS: Alignment of the total left knee arthroplasty is anatomic. There is no periprosthetic frac ture or unexpected radiopaque foreign body. There are skin latrell. IMPRESSION: Expected findings following total left knee arthroplasty. ACT 112: Negative or not required by law. Electronically signed by: Kevon Hayden M.D. 12/26/2022 11:50 AM
[2022-12-26] MEDS: KETOROLAC 30 MG/ML VIAL IV SCH ×2 (12:58→17:34)
[2022-12-26] MEDS: oxyCODONE HCL IR 5 MG TAB (IMMEDIATE RELEASE) PO PRN ×2 (14:26→21:05)
[2022-12-26] MEDS: ACETAMINOPHEN 500 MG TAB PO SCH ×2 (14:26→21:06)
[2022-12-26] MEDS: busPIRone 5 MG TAB PO SCH ×2 (14:28→21:06)
[2022-12-26] MEDS: ceFAZolin 2000MG 2,000 MG/15 ML SYR IV SCH (17:34)
[2022-12-26] MEDS ORDERED: SENNA 8.6 MG TAB PO SCH (21:00)
[2022-12-26] MEDS: DOCUSATE SODIUM 100 MG CAP PO SCH (21:07)
[2022-12-26] MEDS: ASPIRIN 81 MG ECTAB PO SCH (21:07)
[2022-12-27] MEDS: oxyCODONE HCL IR 5 MG TAB (IMMEDIATE RELEASE) PO PRN ×2 (01:19→09:22)
[2022-12-27] MEDS: ceFAZolin 2000MG 2,000 MG/15 ML SYR IV SCH (01:19)
[2022-12-27] MEDS: KETOROLAC 30 MG/ML VIAL IV SCH ×2 (01:19→05:44)
[2022-12-27] MEDS: ACETAMINOPHEN 500 MG TAB PO SCH (05:44)
--- NOTE | 2022-12-27 06:58 | Orthopedic Progress Note ---
Date of Service December 27, 2022 Assessment & Plan (1) Status post left knee replacement: Overall she is doing very well. She is not having much pain in the left knee. She will be seen by physical therapy today for ambulation and range of motion exercises. The nursing staff can change her dressing after physical therapy. She is on aspirin for DVT prophylaxis. She can be discharged home later today. She will follow-up orthopedics in 2 weeks. Rocio Stewart was seen and examined at bedside this morning. Overall she is doing very well. She is not having much pain in the left knee. She has been up ambulating around her room. She has no complaints.. Review of Systems All systems reviewed & are unremarkable except as noted in HPI & below. Physical Exam On physical examination of the left knee, the dressing is clean and dry. Her leg is out full extension. She has active dorsiflexion plantarflexion of her left ankle.. Results & Data Results & Data Laboratory Results . Diagnostic Findings Postoperative x-rays of the left knee show the prosthesis to be in anatomic alignment without any evidence of fracture, dislocation, or loosening. PG Care Time/CCT Total # of Minutes Spent Total Time Spent with Patient: Total time spent is greater than 50% in coordination of care (as documented) at patient's floor/unit and/or counseling patient: Coding Level of Care Code 84984 Post Operative Follow-Up Diagnoses Status post left knee replacement Z96.652
--- NOTE | 2022-12-27 06:59 | Discharge Summary ---
Date of Service December 27, 2022 Principal Diagnosis Same as "Discharge Diagnosis" noted below under Discharge Instructions. Discharge Exam On physical examination of the left knee, the dressing is clean and dry. Her leg is out full extension. She has active dorsiflexion plantarflexion of her left ankle.. Discharge Data Procedures Performed Operation Date: 12/26/22 07:55 Actual Procedures p Left Total Knee Arthroplasty(Left) - Yovani Aparicio DO Ordered Studies 12/26/22 05:00 US - OR guided needle placemen Routine Hospital Course (1) Status post left knee replacement: On December 26, 2022 Pat arrived at [facility] and underwent a left knee replacement without complication. She had a spinal anesthetic. Postoperatively she was started on aspirin for DVT prophylaxis and transferred to the general orthopedic floors. Her hospital course was uneventful. On postop day #1, her vital signs were stable and her pain was well controlled. She was able to participate well with physical therapy doing ambulation and range of motion exercises. She was then discharged home. She will follow-up orthopedics in 2 weeks. PG Care Time/CCT Total # of Minutes Spent Total Time Spent with Patient: Total time spent is greater than 50% in coordination of care (as documented) at patient's floor/unit and/or counseling patient: Discharge Plan Discharge Items Patient Disposition: Home - Home Health Services Reason For Visit: Left Knee Degenerative Joint Disease Discharge Diagnosis: Left knee replacement Activity: Per Instructions section Non-emergency contact: Surgeon Call non-emergency contact if: your wound has increased redness and your wound has increased drainage Follow-up/Referrals: Yovani Starkey DO [Primary Care Provider] - Diet: Regular Addtl Attending Provider Instructions: Activity and Therapy Recommendations: * If you are using [facility] then therapy will be provided at your home until they feel you have accomplished all of your goals. * If you are using [facility] then Physical Therapy will be provided until they feel you are ready to start Outpatient Physical Therapy. * If you are not using home therapy then Outpatient Physical Therapy should start about 3-5 days from your day of surgery. Therapy will last about 6-10 weeks * It is important not to put a pillow under your knee when you are relaxing or sleeping. It is just as important to make sure you are getting your knee perfectly straight as it is to regain your knee bend. * You were shown a series of exercises in the hospital. Do these exercises three times each day including the exercises you were shown in physical therapy. * Get up and walk several times each day. For the first four weeks, try not to stand or walk for more than one hour at a time. If you do stand or walk for more than one hour, you will not hurt anything, but your leg will likely swell. * As you feel comfortable, you may change from the walker or crutches to a cane and then to independent walking. Medications: * Narcotic You will likely be sent home from the hospital with a prescription for the narcotic pain medication that worked best throughout your stay. * Aspirin Most patients will be required to take Aspirin 81mg twice a day for 6 weeks after surgery. This is obtained [id number] and a prescription is not necessary. * Other medications may be prescribed for specific circumstances. If you have any questions, please call the office at . * Resume previous home medications unless otherwise instructed TEDs/Elastic Stockings: The white elastic stockings help limit swelling and prevent blood clots from forming in your legs.~ The more you wear them, the more they work. Wear them for six weeks. Dressing Care: The dressing can be changed after physical therapy on postop day #1. Daily dry dressing changes for a few days, especially if the incision is still draining some. If the incision is not draining then you may leave the latrell open to air. If there is a little bit of drainage or if the latrell are getting stuck on your clothing then cover the incision with a dry dressing. The latrell will be removed at your 2 week follow-up appointment. Showering: You may shower 5 days from the day of surgery as long as the incision is no longer draining. You may shower with the latrell exposed. Let soapy water run over the latrell and pat them dry. Do not scrub or soak the incision. Things To Watch For: * Drainage from the incision site that occurs more than one week after your surgery. * Increased redness at the incision site. * Fever above 102 degrees Fahrenheit. * Unusual chest pain or shortness of breath. * Call [facility] at with any of the above problems Follow-Up Visit: Follow-up with Dr. Aparicio's PA (Yovani Fitzgerald) 2-3 weeks after your day of surgery. He will remove your latrell and answer any questions. If you have any additional questions or concerns, Dr Aparicio is usually in the office at the same time and will be available An appointment was probably scheduled when you signed-up for surgery in the office. If you have any questions call Office Instructions: More detailed instructions as well as Frequently Asked Questions were provided in a folder by our office when you signed-up for surgery. Please review these instructions when you get home. If you have any further questions or concerns, please feel free to call the office at [phone] Pending Studies at Discharge: No Stand-Alone Forms: My [facility] [employer], Smoking Cessation Medications and DC Order Prescriptions: New oxycodone 5 mg Tablet 5 mg PO Q4H PRN (Reason: pain) Qty: 30 0RF aspirin 81 mg Tablet,Delayed Release (Dr/Ec) 81 mg PO BID 42 Days Qty: 0 0RF Continued buspirone 10 mg tablet 10 mg PO TID Qty: 270 3RF meloxicam 7.5 mg tablet 7.5 mg PO DAILY PRN (Reason: knee pain) Qty: 30 0RF omeprazole 40 mg capsule,delayed release(DR/EC) 40 mg PO DAILY PRN (Reason: gerd) metoprolol tartrate 50 mg tablet 25 mg PO QAM ondansetron 4 mg tablet,disintegrating 4 mg PO Q6H PRN (Reason: Nausea And Vomiting) fluoxetine 20 mg capsule 40 mg PO QAM Admission Data Admit Date/Time: 12/26/22 09:33 Attending Provider: Yovani Aparicio Admit Provider: Yovani Aparicio Primary Care Provider: Yovani Starkey
[2022-12-27] MEDS ORDERED: dexAMETHasone 4 MG TAB PO SCH (08:00)
[2022-12-27] MEDS: ASPIRIN 81 MG ECTAB PO SCH (08:05)
[2022-12-27] MEDS: DOCUSATE SODIUM 100 MG CAP PO SCH (08:06)
[2022-12-27] MEDS: busPIRone 5 MG TAB PO SCH (08:06)
[2022-12-27] MEDS ORDERED: METOPROLOL TARTRATE 25 MG TAB PO SCH (09:00)
[2022-12-27] MEDS ORDERED: FLUoxetine HCL 20 MG CAP PO SCH (09:00)
[2022-12-27] MEDS ORDERED: MULTIVITAMIN TAB PO SCH (09:00)
== END 2022-12-27 10:50 | disposition home health service (06) ==
LOC: 3E 05:47 → ASU 05:47
DX: Z79.899 Other long term (current) drug therapy; E66.9 Obesity, unspecified; M17.12 Unilateral primary osteoarthritis, left knee; Z88.8 Allergy status to other drugs, medicaments and biological substances; Z88.0 Allergy status to penicillin; K21.9 Gastro-esophageal reflux disease without esophagitis; Z68.39 Body mass index [BMI] 39.0-39.9, adult; F17.210 Nicotine dependence, cigarettes, uncomplicated; I10 Essential (primary) hypertension; E78.5 Hyperlipidemia, unspecified